=== PATIENT | female | born 1940 | race Caucasian/White ===

== ENCOUNTER 2018-09-10 09:40 | Observation (INO) | payer MEDICARE, OTHER ==
[~2018-09-10] VITALS: Ht 154.9 cm; Wt 74.1 kg
[~2018-09-10 09:40] MED LIST: AMLODIPINE BESY10 MG PO; AREDS; AVASTIN25 MG/1 ML; B12 PO; CALCIUM600 MG PO; CLOPIDOGREL75 MG PO; EDARBI80 MG PO; HYDROCHLOROTH12.5 MG PO; HYDROXYCHLOROQ200 MG PO; LEVETIRACETAM750 M1 PO; MAGNESIUM500 MG PO; METHOTREXATE2.5 MG PO; METOPROLOL SUCC50 MG PO; MONTELUKAST SOD10 MG PO; OMEGA-31000 MG; OXAPROZIN600 MG PO; TRAVATAN Z5 ML OP; TRIAMCINOLONE A15 G1; ZYRTEC10 M3; [UNRECOGNIZED DRUG - OTHER]; [UNRECOGNIZED DRUG - OTHER] PO
--- OUTSIDE RECORDS SUMMARY | 2018-09-10 09:42 | XMS REPORT | Clinical Summary ---
Author Author [facility] Address Unknown Phone Unavailable Care Team Providers Care Business Services Representative Name Role Phone Jose Robin MD PCP Allergies Not on File Medications Not on file Active Problems Not on file Encounters Care Team Description Date Type Specialty Tavares Blank MD S/P total knee arthroplasty, right (Primary Dx) 02/06/2018 Transcribe Physical Therapy Orders after 09/09/2017 Social History Date Tobacco Use Types Packs/Day Years Used Never Assessed Sex Assigned at Date Recorded Not on file Industry Job Start Date Occupation Not on file Not on file Not on file Travel End Travel History Travel Start No recent travel history available. Last Filed Vital Signs Not on file Plan of Treatment Health Maintenance Due Date Last Done Comments SHINGLES VACCINES (#1) 12/15/1989 65+ PNEUMOCOCCAL VACCINE 12/15/2004 09/13/2015 (2 of 2 - PPSV23) INFLUENZA VACCINE 01/10/2018 PNEUMOCOCCAL Completed 09/13/2015 POLYSACCHARIDE VACCINE AGE 65 AND OVER Results Not on fileafter 09/09/2017 Insurance Payer Benefit Subscriber ID Type Phone Address Plan / Group HUMANA MEDICARE HUMANA xxxxxxxxx PPO MEDICARE PPO/PFFS/E [facility] Advance Directives Patient has advance care planning documents on file. For more information, saumya garcia contact: [facility] [address] [place] [address]
--- OUTSIDE RECORDS SUMMARY | 2018-09-10 09:42 | XMS REPORT | Continuity of Care Document ---
Author Author 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 12/30/2015 [facility] [place] INTRAPARENCHYMAL BLEED Active 09/13/2015 [facility] Macular degeneration Active 04/10/2014 Problem 01/09/2016 [facility], [facility] [place] Seizures Active 04/10/2014 Problem 01/09/2016 [facility], [facility] [place] TIA Resolved 04/10/2014 Problem 01/09/2016 [facility], [facility] [place] Arthritis Resolved Problem 01/09/2016 [facility], [facility] [place] Hypertension Resolved Problem 01/09/2016 [facility], [facility] [place] OTHER SPECIFIED CONGENITAL DEFORMITIES Active [facility] Medications Medication Details Route Status Patient Instructions Ordering Provider Order Date Source Labetalol 200 mg, 1 tab, Route: PO, Drug form: TAB, Q8H, Dosing Weight 71.5, kg, Start date: 09/17/15 16:00:00, Duration: 30 day, Stop date: 10/17/15 8:00:00Notes: With food. (Same as:Trandate, Normodyne) No Longer Active 09/17/2015 [facility] amLODIPine 10 mg oral tablet 10 mg=1 tab, PO, Daily, # 30 tab, 0 Refill(s) Active 09/17/2015 [facility] Multivitamins with Folic Acid 1 mg oral tablet 1 mg=1 tab, PO, Daily, # 30 tab, 0 Refill(s) Active 09/17/2015 [facility] Levetiracetam 500 MG Oral Tablet [Keppra] 1,000 mg=2 tab, PO, Q12H, # 120 tab, 0 Refill(s) Active 09/17/2015 [facility] Calcium Carbonate 500 MG Chewable Tablet 1,000 mg=2 tab, PO, Daily, 0 Refill(s) Active 09/17/2015 [facility] labetalol 100 mg oral tablet 200 mg=2 tab, PO, Q8H, # 180 tab, 0 Refill(s) Active 09/17/2015 [facility] losartan 50 mg oral tablet 100 mg=2 tab, PO, Daily, # 60 tab, 0 Refill(s) Active 09/17/2015 [facility] Labetalol 100 mg, 1 tab, Route: PO, Drug form: TAB, Q8H, Dosing Weight 71.5, kg, Priority: NOW, Start date: 09/16/15 16:53:00, Duration: 30 day, Stop date: 10/16/15 16:00:00Notes: With food. (Same as:TrandaValentin myersodyne) No Longer Active 09/16/2015 [facility] Labetalol 100 mg, 1 tab, Route: PO, Drug form: TAB, Q12H, Dosing Weight 71.5, kg, Priority: NOW, Start date: 09/16/15 4:07:00, Stop date: 10/15/15 21:00:00Notes: With food. (Same as:Trandate, Normodyne) Inactive 09/16/2015 [facility] methotrexate 2.5 mg oral tablet 7.5 mg=3 tab, PO, Q7D Active 09/15/2015 [facility] oxaprozin 600 MG Oral Tablet [Daypro] 1,200 mg=2 tab, PO, Daily Active 09/15/2015 [facility] metoprolol 100 mg oral tablet, extended release 100 mg=1 tab, PO, Daily No Longer Active 09/15/2015 [facility] azilsartan medoxomil 80 MG Oral Tablet [Edarbi] 80 mg=1 tab, PO, Daily No Longer Active 09/15/2015 [facility] clopidogrel 75 MG Oral Tablet [Plavix] 75 mg=1 tab, PO, Daily, # 30 tab, 0 Refill(s) No Longer Active 09/15/2015 [facility] Cozaar 25 mg, 1 tab, Route: PO, Drug form: TAB, ONCE, Start date: 09/15/15 14:05:00, Stop date: 09/15/15 14:05:00Notes: (Same as: Cozaar) Inactive 09/15/2015 [facility] Betamethasone 0.5 MG/ML Topical Lotion 1 appl, Route: TOP, Daily, Drug form: LOT, Start date: 09/15/15 11:43:00, Duration: 30 day, Stop date: 10/15/15 9:00:00Notes: (Same as:Valisone) No Longer Active 09/15/2015 [facility] Vitamin B12 2,500 microgram, 5 tab, Route: PO, Drug form: TAB, Daily, Dosing Weight 71.5, kg, Start date: 09/15/15 11:38:00, Duration: 30 day, Stop date: 10/15/15 9:00:00Notes: (Same As: Vitamin B12) No Longer Active 09/15/2015 [facility] Magnesium Oxide 400 mg, 1 tab, Route: PO, Drug form: TAB, Daily, Dosing Weight 71.5, kg, Start date: 09/15/15 11:33:00, Duration: 30 day, Stop date: 10/15/15 9:00:00Notes: (Same as: Mag-Ox 400) Magnesium oxide 400mg =242mg elemental magnesium Dose=____mg magnesium oxide (___mg elemental magnesium) No Longer Active 09/15/2015 [facility] Folic Acid 1 mg, 1 tab, Route: PO, Drug form: TAB, Daily, Dosing Weight 71.5, kg, Start date: 09/15/15 11:32:00, Duration: 30 day, Stop date: 10/15/15 9:00:00Notes: (Same as: Folvite) No Longer Active 09/15/2015 [facility] Zyrtec 10 mg, 1 tab, Route: PO, Drug form: TAB, Daily, Dosing Weight 71.5, kg, PRN as needed for allergy symptoms, Start date: 09/15/15 11:10:00, Duration: 30 day, Stop date: 10/15/15 11:09:00Notes: (Same As: Zyrtec) No Longer Active 09/15/2015 [facility] Multihance 529 mg/mL 7,564.7 mg, 14.3 mL, Route: IVP, Drug form: INJ, ONCALL, Dosing Weight 71.5, kg, GFR > 39 ml/min, Priority: STAT, Start date: 09/14/15 23:00:00, Duration: 1 doses or timesNotes: Same as Multihance No Longer Active 09/15/2015 [facility] Ativan 1 mg, 0.5 mL, Route: IVP, Drug form: INJ, ONCE, Dosing Weight 71.5, kg, PRN Anxiety, Start date: 09/14/15 22:37:00Notes: (Same as: Ativan) Inactive 09/15/2015 [facility] Levetiracetam 500 MG Oral Tablet [Keppra] 1,000 mg, 2 tab, Route: PO, Drug form: TAB, Q12H, Dosing Weight 71.5, kg, Start date: 09/14/15 21:00:00, Duration: 30 day, Stop date: 10/14/15 9:00:00Notes: (Same as:Keppra) No Longer Active 09/15/2015 [facility] cholecalciferol 1,000 IntlUnit, Route: PO, Drug form: TAB, Daily, Dosing Weight 71.5, kg, Start date: 09/14/15 9:00:00, Duration: 30 day, Stop date: 10/13/15 9:00:00 No Longer Active 09/14/2015 [facility] Calcium Carbonate 1,000 mg, 2 tab, Route: PO, Drug form: CHEWTAB, Daily, Dosing Weight 71.5, kg, Start date: 09/14/15 9:00:00, Duration: 30 day, Stop date: 10/13/15 9:00:00Notes: (Same As: Tumalis) Calcium Carbonate 500 ld=729 mg elemental calcium Dose= mg calcium carbonate ( mg elemental calcium) No Longer Active 09/14/2015 [facility] Hydroxychloroquine Sulfate 200 MG Oral Tablet 200 mg, 1 tab, Route: PO, Drug form: TAB, BID, Dosing Weight 71.5, kg, Start date: 09/14/15 9:00:00, Duration: 30 day, Stop date: 10/13/15 17:00:00Notes: (Same as: Plaquenil) Hydroxychloroquine sulfate 200 vb=741 mg hydroxychloroquine base. If treating malaria, verify dose as salt vs. base per CDC guideline No Longer Active 09/14/2015 [facility] heparin 5,000 unit, 1 mL, Route: SUB-Q, Drug form: INJ, Q8H, Dosing Weight 71.5, kg, Priority: Routine, Start date: 09/14/15 8:00:00, Duration: 30 day, Stop date: 10/14/15 0:00:00Notes: porcine heparin No Longer Active 09/14/2015 [facility] Potassium Chloride 10 MEQ Extended Release Tablet 10 mEq, 1 tab, Route: PO, Drug form: ERTAB, ONCE, Dosing Weight 71.5, kg, Start date: 09/14/15 6:53:00, Stop date: 09/14/15 6:53:00Notes: (Same as: K-Dur 10) "Do Not Crush" With food and full glass of water Inactive 09/14/2015 [facility] Singulair 10 mg, 1 tab, Route: PO, Drug form: TAB, Bedtime, Dosing Weight 71.5, kg, Start date: 09/13/15 21:00:00, Duration: 30 day, Stop date: 10/12/15 21:00:00Notes: (Same as:Singulair) No Longer Active 09/14/2015 [facility] metoprolol tartrate 50 mg, 1 tab, Route: PO, Drug form: TAB, Q12H, Dosing Weight 71.5, kg, Start date: 09/13/15 21:00:00, Duration: 30 day, Stop date: 10/13/15 9:00:00Notes: (Same as: Lopressor) No Longer Active 09/14/2015 [facility] travoprost 0.04 MG/ML Ophthalmic Solution 1 drp, Route: LEFT EYE, Bedtime, Drug form: SOLN, Start date: 09/13/15 21:00:00, Duration: 30 day, Stop date: 10/12/15 21:00:00Notes: Same As: Travatan or Travatan Z No Longer Active 09/14/2015 [facility] Tylenol 650 mg, 2 tab, Route: PO, Drug form: TAB, Q6H, Dosing Weight 71.5, kg, PRN Pain 1-3/Temp > 100.4 F, Start date: 09/13/15 18:11:00, Duration: 30 day, Stop date: 10/13/15 18:10:00Notes: Do not exceed 4 gm/day. (Same as: Tylenol) No Longer Active 09/13/2015 [facility] Cozaar 100 mg, 2 tab, Route: PO, Drug form: TAB, Daily, Start date: 09/13/15 13:00:00, Stop date: 10/12/15 13:00:00Notes: (Same as: Cozaar) No Longer Active 09/13/2015 [facility] azilsartan 80 mg, Route: PO, Daily, Dosing Weight 71.5, kg, Priority: NOW, Start date: 09/13/15 12:19:00, Duration: 30 day, Stop date: 10/13/15 9:00:00 Inactive 09/13/2015 [facility] Amlodipine 10 mg, 1 tab, Route: PO, Drug form: TAB, Daily, Dosing Weight 71.5, kg, Priority: NOW, Start date: 09/13/15 12:18:00, Duration: 30 day, Stop date: 10/13/15 9:00:00Notes: (Same as: Norvasc) No Longer Active 09/13/2015 [facility] metoprolol extended release 100 mg, 1 tab, Route: PO, Drug form: ERTAB, Daily, Priority: NOW, Start date: 09/13/15 12:17:00, Duration: 30 day, Stop date: 10/13/15 9:00:00Notes: (Same as: Toprol XL) May split tab, but do not crush. Inactive 09/13/2015 [facility] sennosides, GROUP HOME 17.2 mg, 2 tab, Route: PO, Drug Form: TAB, kg, Daily, Start date: 09/13/15 9:00:00, Duration: 30 day, Stop date: 10/12/15 9:00:00Notes: (Same as: Senokot) No Longer Active 09/13/2015 [facility] Docusate 100 mg, 1 cap, Route: PO, Drug form: CAP, BID, kg, Start date: 09/13/15 9:00:00, Duration: 30 day, Stop date: 10/12/15 17:00:00Notes: (Same as: Colace) (Do Not Crush) No Longer Active 09/13/2015 [facility] Multivitamins with Folic Acid 1 mg oral tablet 1 tab, Route: PO, Drug Form: TAB, Dosing Weight 71.5, kg, Daily, Start date: 09/13/15 9:00:00, Duration: 30 day, Stop date: 10/12/15 9:00:00 No Longer Active 09/13/2015 [facility] Levetiracetam 500 MG Oral Tablet [Keppra] 750 mg, 3 tab, Route: PO, Drug form: TAB, Q12H, Dosing Weight 71.5, kg, Start date: 09/13/15 9:00:00, Duration: 30 day, Stop date: 10/12/15 21:00:00Notes: (Same as:Keppra) No Longer Active 09/13/2015 [facility] Saline Flush 0.9% 10 ml, Route: IVP, Drug Form: INJ, Dosing Weight 71.5, kg, Q12H, Start date: 09/13/15 9:00:00, Duration: 30 day, Stop date: 10/12/15 21:00:00Notes: (Same as: BD Posiflush) No Longer Active 09/13/2015 [facility] pneumococcal capsular polysaccharide type 1 vaccine / pneumococcal capsular polysaccharide type 10A vaccine / pneumococcal capsular polysaccharide type 11A vaccine / pneumococcal capsular polysaccharide type 12F vaccine / pneumococcal capsular polysacchar 0.5 mL, Route: IM, Drug Form: INJ, Daily, Start date: 09/13/15 9:00:00, Duration: 1 doses or times, Stop date: 09/13/15 9:00:00Notes: (Same as: Pneumovax 23) Refrigerate Inactive 09/13/2015 [facility] Saline Flush 0.9% 10 ml, Route: IVP, Drug Form: INJ, Dosing Weight 71.5, kg, PRN, PRN Line Flush, Start date: 09/13/15 5:38:00, Duration: 30 day, Stop date: 10/13/15 5:37:00Notes: Same as: BD Posiflush Sterile No Longer Active 09/13/2015 [facility] Nicardipine 40 mg, 200 mL, Rate: Titrate, Start Dose: 5 mg/hr, Titration: 2.5 mg/hour every 15 minutes, Goal(s): goal SBP 110-150, Max Dose: 15 mg/hr, Route: IV, Dosing Weight 71.5 kg, Total Volume: 200, Start date: 09/13/15 5:38:00, Duration: 30 day, Stop date:...Notes: Same as: Cardene Concentration: (0.2 mg /1 ml ) No Longer Active 09/13/2015 [facility] Labetalol 10 mg, 2 mL, Route: IVP, Drug form: INJ, Q10Min, Dosing Weight 71.5, kg, PRN Hypertension, For SBP > 150mmHg, Start date: 09/13/15 5:38:00, Duration: 3 doses or times, Stop date: Limited # of times No Longer Active 09/13/2015 [facility] Labetalol 10 mg, 2 mL, Route: IV, Drug form: INJ, Q1H, Dosing Weight 71.5, kg, PRN Other -See Comment, Start date: 09/13/15 5:27:00, Duration: 30 day, Stop date: 10/13/15 5:26:00, SBP > 150 No Longer Active 09/13/2015 [facility] Hydralazine 10 mg, 0.5 mL, Route: IVP, Drug form: INJ, Q4H, Dosing Weight 71.5, kg, PRN Hypertension, Start date: 09/13/15 4:21:00, Duration: 30 day, Stop date: 10/13/15 4:20:00Notes: (Same as: Apresoline) Push over 5 minutes No Longer Active 09/13/2015 [facility] potassium chloride 20 mEq, 100 mL, Route: IVPB, Drug form: INJ, ONCE, Dosing Weight 71.5, kg, Start date: 09/13/15 3:58:00, Stop date: 09/13/15 3:58:00, Central LineNotes: (Same as: KCL) Infuse no faster than 10 mEq/hr if given peripherally. Inactive 09/13/2015 [facility] NS 1,000 mL 1,000 mL, Rate: 75 ml/hr, Infuse over: 13.3 hr, Route: IV, Dosing Weight 71.5 kg, Total Volume: 1,000, Start date: 09/13/15 2:33:00, Duration: 30 day, Stop date: 10/13/15 2:32:00 Inactive 09/13/2015 [facility] montelukast 10 MG Oral Tablet [Singulair] 10 mg=1 tab, PO, QPM, 0 Refill(s) Active 09/13/2015 [facility] 120 ACTUAT Triamcinolone Acetonide 0.055 MG/ACTUAT Nasal Inhaler 2 spray, NASAL, Daily, 0 Refill(s) Active 09/13/2015 [facility] clopidogrel 75 mg oral tablet 75 mg=1 tab, PO, Daily, 0 Refill(s) No Longer Active 09/13/2015 [facility] magnesium oxide 500 mg oral tablet 500 mg=1 tab, PO, Daily, 0 Refill(s) Active 09/13/2015 [facility] Calcium Carbonate 1,200 mg, PO, Daily, 0 Refill(s) No Longer Active 09/13/2015 [facility] hydrochlorothiazide 12.5 mg oral tablet 12.5 mg=1 tab, PO, Daily, 0 Refill(s) No Longer Active 09/13/2015 [facility] amLODIPine 10 mg oral tablet 10 mg=1 tab, PO, Daily, 0 Refill(s) No Longer Active 09/13/2015 [facility] omega-3 polyunsaturated fatty acids PO, 0 Refill(s) No Longer Active 09/13/2015 [facility] Vitamin B12 2,500 microgram, SL, Daily, 0 Refill(s) Active 09/13/2015 [facility] azilsartan 80 mg oral tablet 80 mg=1 tab, PO, Daily, 0 Refill(s) No Longer Active 09/13/2015 [facility] Vitamin D3 5000 intl units oral tablet 5,000 IntlUnit=1 tab, PO, Daily, 0 Refill(s) Active 09/13/2015 [facility] Folic Acid 1 MG Oral Tablet 1 mg=1 tab, PO, Daily, 0 Refill(s) Active 09/13/2015 [facility] Avastin 25 mg/mL intravenous solution See Instructions, LEFT EYE - injected in eye once every 6 weeks, 0 Refill(s) Active 09/13/2015 [facility] travoprost 0.04 MG/ML Ophthalmic Solution [Travatan] 1 drp, BOTH EYES, QPM, 0 Refill(s) Active 09/13/2015 [facility] 24 HR Levetiracetam 750 MG Extended Release Tablet [Keppra] 750 mg=1 tab, PO, Daily, 0 Refill(s) No Longer Active 09/13/2015 [facility] Diclofenac Sodium 0.01 MG/MG Topical Gel [Voltaren] TOP, 0 Refill(s) Active 09/13/2015 [facility] oxaprozin 600 mg oral tablet 1,200 mg=2 tab, PO, Daily, 0 Refill(s) No Longer Active 09/13/2015 [facility] methotrexate 2.5 mg oral tablet 2.5 mg=1 tab, PO, qWeek, 0 Refill(s) No Longer Active 09/13/2015 [facility] Hydroxychloroquine Sulfate 200 MG Oral Tablet 200 mg=1 tab, PO, Q12H, 0 Refill(s) Active 09/13/2015 [facility] cetirizine hydrochloride 10 MG Oral Tablet [Zyrtec] 10 mg=1 tab, PO, Daily, PRN as needed for allergy symptoms, 0 Refill(s) Active 09/13/2015 [facility] Allergies, Adverse Reactions, Alerts Substance Category Reaction Severity Reaction type Status Date Reported Comments Source sulfa drugs Assertion rash Drug allergy Active [facility] [place] Immunizations Immunization Date Given Site Status Last Updated Comments Source pneumococcal 23-valent vaccine 09/13/2015 Left Deltoid completed [facility] [place] Results Order Name Results Value Reference Range Date Interpretation Comments Source Brain wo contrast CT Brain wo contrast CT Brain wo contrast CT 10/06/2017 11:02 AM CDT Clinical Indication: Z86.79 Personal history of other diseases of the circulatory system; HISTORY of intracranial hemorrhage - Z86.79 Personal history of other diseases of the circulatory system; HISTORY of intracranial hemorrhage; COMPARISON: 01/06/2016 MRI, 09/14/2015 CT TECHNIQUE: Axial CT images of the brain are obtained from the skull base to the vertex. Axial, sagittal, and coronal images are interpreted. Contrast: No IV contrast. DLP: 1223 mGy-cm. This exam was performed according to our departmental dose- optimization protocol, which includes automated exposure control, adjustment of the mA and/or kV according to patient size and/or use of iterative reconstruction technique. FINDINGS: BRAIN: Left frontal lobe encephalomalacia and gliosis is present due to the prior hemorrhage. No acute intracranial hemorrhage. Significant chronic microvascular ischemia is seen. Mild cerebral atrophy is present. SKULL: No skull abnormality is seen. VENTRICLES: The ventricles are normal in size and configuration. ORBITS, VISUALIZED PARANASAL SINUSES AND MASTOIDS: Visualized paranasal sinuses are clear. The mastoid air cells are clear. No orbital pathology is seen. IMPRESSION: 1. No acute intracranial abnormality identified. 2. Left frontal lobe encephalomalacia and gliosis due to prior hemorrhage. 3. Significant chronic microvascular ischemia. 10/06/2017 - - Read by: Rad Villeda MD Dictated Date/time: 10/06/17 16:26 Electronically Signed by: Rad Villeda MD 10/06/17 16:30 FINAL REPORT [facility] Brain w/wo contrast MRI Brain w/wo contrast MRI EXAM: MRI OF THE BRAIN WITHOUT AND WITH CONTRAST DATE:- 01/06/2016 10:00 AM CDT . 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 ADDITIONAL DATA: History: 75 year old female with c/o stroke and hemorrhage in brain. Per patient she states follow up on checking for absorption of blood in brain. COMPARISON: Brain magnetic resonance imaging of 09/14/2015, brain CT of 09/14/2015 TECHNIQUE : Multiplanar imaging of the brain was obtained both prior to and after uncomplicated IV administration of 15 cc Omniscan FINDINGS: Again noted is a left frontal parietal hematoma with subarachnoid and intraventricular extension. The overall cavity now measures 3.4 cm AP by 9 mm transverse with the hematoma itself measuring 10 mm. There is no mass effect or surrounding vasogenic edema currently. There is moderate generalized cortical and deep white matter volume loss with passive enlargement of the ventricles and sulci. There are advanced chronic microangiopathic white matter changes. There are a few, mostly right hemispheric chronic microhemorrhages. The lateral ventricles, cortical sulci, and basal cisterns are patent. The cerebellar tonsils are above foramen magnum. The sella is normal. The vascular flow-voids are unremarkable. There is no worrisome enhancement. There is minimal, linear enhancement of the hematoma cavity. The paranasal sinuses, orbits and mastoids are unremarkable. IMPRESSION: Resolving left frontal intraparenchymal hematoma without evidence of interval rebleeding or underlying mass lesion. Minimal, linear enhancement of the hematoma cavity is likely reactive 01/06/2016 - - Read by: Jered Baker MD Dictated Date/time: 01/06/16 11:39 Electronically Signed by: Jered Baker MD 01/06/16 13:24 FINAL REPORT [facility] ELECTROLYTES AGAP 16.4 meq/L 10.0 - 20.0 09/17/2015 [facility] ELECTROLYTES eGFR 79 mL/min/1.73m2 09/17/2015 Result Comment: The eGFR is calculated using the CKD-EPI formula. In most young, healthy individuals the eGFR will be >90 mL/min/1.73m2. The eGFR declines with age. An eGFR of 60-89 may be normal in some populations, particularly the elderly, for whom the CKD-EPI formula has not been extensively validated. Use of the eGFR is not recommended in the following populations: Individuals with unstable creatinine concentrations, including patients and those with serious co-morbid conditions. Patients with extremes in muscle mass or diet. The data above are obtained from the National Kidney Disease Education Program (NKDEP) which additionally recommends that when the eGFR is used in patients with extremes of body mass index for purposes of drug dosing, the eGFR should be multiplied by the estimated BMI. [facility] ELECTROLYTES CO2 23 meq/L 24 - 32 09/17/2015 [facility] ELECTROLYTES Glucose Lvl 116 mg/dL 70 - 99 09/17/2015 [facility] ELECTROLYTES BUN 17 mg/dL 7 - 22 09/17/2015 [facility] ELECTROLYTES Calcium Lvl 9.0 mg/dL 8.5 - 10.5 09/17/2015 [facility] ELECTROLYTES Chloride Lvl 95 meq/L 95 - 109 09/17/2015 [facility] ELECTROLYTES Sodium Lvl 131 meq/L 135 - 145 09/17/2015 [facility] ELECTROLYTES Potassium Lvl 3.4 meq/L 3.5 - 5.1 09/17/2015 [facility] ELECTROLYTES Creatinine Lvl 0.74 mg/dL 0.50 - 1.40 09/17/2015 [facility] HEMATOLOGY Segs 76.5 % 45.0 - 75.0 09/17/2015 [facility] HEMATOLOGY Lymphocytes 13.1 % 20.0 - 40.0 09/17/2015 [facility] HEMATOLOGY Basophils 0.3 % 0.0 - 1.0 09/17/2015 [facility] HEMATOLOGY Monocytes 9.6 % 2.0 - 12.0 09/17/2015 [facility] HEMATOLOGY Eosinophils 0.5 % 0.0 - 4.0 09/17/2015 [facility] HEMATOLOGY Segs-Bands # 6.6 K/CMM 1.5 - 8.1 09/17/2015 [facility] HEMATOLOGY Lymphocytes # 1.1 K/CMM 1.0 - 5.5 09/17/2015 [facility] HEMATOLOGY Monocytes # 0.8 K/CMM 0.0 - 0.8 09/17/2015 [facility] HEMATOLOGY Hgb 11.0 g/dL 12.0 - 16.0 09/17/2015 [facility] HEMATOLOGY Hct 31.7 % 36.0 - 48.0 09/17/2015 [facility] HEMATOLOGY MCV 91.3 fL 80.0 - 98.0 09/17/2015 [facility] HEMATOLOGY MCHC 34.8 g/dL 32.0 - 36.0 09/17/2015 [facility] HEMATOLOGY MCH 31.8 pg 27.0 - 31.0 09/17/2015 [facility] HEMATOLOGY RDW 15.7 % 11.5 - 14.5 09/17/2015 [facility] HEMATOLOGY MPV 6.4 fL 7.4 - 10.4 09/17/2015 [facility] HEMATOLOGY Platelet 311 K/CMM 133 - 450 09/17/2015 [facility] HEMATOLOGY RBC 3.47 M/CMM 4.20 - 5.40 09/17/2015 [facility] HEMATOLOGY WBC 8.7 K/CMM 3.7 - 10.4 09/17/2015 [facility] CHEM PANEL Phosphorus 3.4 mg/dL 2.5 - 4.5 09/16/2015 [facility] CHEM PANEL Magnesium Lvl 2.4 mg/dL 1.8 - 2.4 09/16/2015 [facility] ELECTROLYTES AGAP 14.5 meq/L 10.0 - 20.0 09/16/2015 [facility] ELECTROLYTES eGFR 88 mL/min/1.73m2 09/16/2015 Result Comment: The eGFR is calculated using the CKD-EPI formula. In most young, healthy individuals the eGFR will be >90 mL/min/1.73m2. The eGFR declines with age. An eGFR of 60-89 may be normal in some populations, particularly the elderly, for whom the CKD-EPI formula has not been extensively validated. Use of the eGFR is not recommended in the following populations: Individuals with unstable creatinine concentrations, including patients and those with serious co-morbid conditions. Patients with extremes in muscle mass or diet. The data above are obtained from the National Kidney Disease Education Program (NKDEP) which additionally recommends that when the eGFR is used in patients with extremes of body mass index for purposes of drug dosing, the eGFR should be multiplied by the estimated BMI. [facility] ELECTROLYTES Calcium Lvl 9.4 mg/dL 8.5 - 10.5 09/16/2015 [facility] ELECTROLYTES CO2 23 meq/L 24 - 32 09/16/2015 [facility] ELECTROLYTES Chloride Lvl 100 meq/L 95 - 109 09/16/2015 [facility] ELECTROLYTES Glucose Lvl 113 mg/dL 70 - 99 09/16/2015 [facility] ELECTROLYTES BUN 15 mg/dL 7 - 22 09/16/2015 [facility] ELECTROLYTES Creatinine Lvl 0.63 mg/dL 0.50 - 1.40 09/16/2015 [facility] ELECTROLYTES Sodium Lvl 134 meq/L 135 - 145 09/16/2015 [facility] ELECTROLYTES Potassium Lvl 3.5 meq/L 3.5 - 5.1 09/16/2015 [facility] HEMATOLOGY Monocytes # 0.6 K/CMM 0.0 - 0.8 09/16/2015 [facility] HEMATOLOGY Basophils # 0.1 K/CMM 0.0 - 0.2 09/16/2015 [facility] HEMATOLOGY Eosinophils # 0.1 K/CMM 0.0 - 0.5 09/16/2015 [facility] HEMATOLOGY Basophils 0.7 % 0.0 - 1.0 09/16/2015 [facility] HEMATOLOGY Lymphocytes # 1.1 K/CMM 1.0 - 5.5 09/16/2015 [facility] HEMATOLOGY Segs-Bands # 6.6 K/CMM 1.5 - 8.1 09/16/2015 [facility] HEMATOLOGY Eosinophils 1.1 % 0.0 - 4.0 09/16/2015 [facility] HEMATOLOGY Monocytes 7.1 % 2.0 - 12.0 09/16/2015 [facility] HEMATOLOGY Lymphocytes 13.2 % 20.0 - 40.0 09/16/2015 [facility] HEMATOLOGY Segs 77.9 % 45.0 - 75.0 09/16/2015 [facility] HEMATOLOGY Hgb 12.1 g/dL 12.0 - 16.0 09/16/2015 [facility] HEMATOLOGY MCHC 35.0 g/dL 32.0 - 36.0 09/16/2015 [facility] HEMATOLOGY MCH 31.8 pg 27.0 - 31.0 09/16/2015 [facility] HEMATOLOGY MCV 91.0 fL 80.0 - 98.0 09/16/2015 [facility] HEMATOLOGY Hct 34.5 % 36.0 - 48.0 09/16/2015 [facility] HEMATOLOGY RDW 15.4 % 11.5 - 14.5 09/16/2015 [facility] HEMATOLOGY MPV 6.3 fL 7.4 - 10.4 09/16/2015 [facility] HEMATOLOGY Platelet 340 K/CMM 133 - 450 09/16/2015 [facility] HEMATOLOGY RBC 3.79 M/CMM 4.20 - 5.40 09/16/2015 [facility] HEMATOLOGY WBC 8.5 K/CMM 3.7 - 10.4 09/16/2015 [facility] PARATHYROID PROFILE Ca Norm WB 1.22 mMol/L 1.05 - 1.25 09/16/2015 [facility] PARATHYROID PROFILE Ca Ion WB 1.18 mMol/L 1.05 - 1.25 09/16/2015 [facility] CHEM PANEL Phosphorus 2.3 mg/dL 2.5 - 4.5 09/15/2015 [facility] CHEM PANEL Magnesium Lvl 2.3 mg/dL 1.8 - 2.4 09/15/2015 [facility] CHEM PANEL eGFR 89 mL/min/1.73m2 09/15/2015 Result Comment: The eGFR is calculated using the CKD-EPI formula. In most young, healthy individuals the eGFR will be >90 mL/min/1.73m2. The eGFR declines with age. An eGFR of 60-89 may be normal in some populations, particularly the elderly, for whom the CKD-EPI formula has not been extensively validated. Use of the eGFR is not recommended in the following populations: Individuals with unstable creatinine concentrations, including patients and those with serious co-morbid conditions. Patients with extremes in muscle mass or diet. The data above are obtained from the National Kidney Disease Education Program (NKDEP) which additionally recommends that when the eGFR is used in patients with extremes of body mass index for purposes of drug dosing, the eGFR should be multiplied by the estimated BMI. [facility] CHEM PANEL CO2 24 meq/L 24 - 32 09/15/2015 [facility] CHEM PANEL Calcium Lvl 8.7 mg/dL 8.5 - 10.5 09/15/2015 [facility] CHEM PANEL Glucose Lvl 95 mg/dL 70 - 99 09/15/2015 [facility] CHEM PANEL BUN 14 mg/dL 7 - 22 09/15/2015 [facility] CHEM PANEL Creatinine Lvl 0.62 mg/dL 0.50 - 1.40 09/15/2015 [facility] CHEM PANEL Potassium Lvl 3.5 meq/L 3.5 - 5.1 09/15/2015 [facility] CHEM PANEL Chloride Lvl 99 meq/L 95 - 109 09/15/2015 [facility] CHEM PANEL Sodium Lvl 133 meq/L 135 - 145 09/15/2015 [facility] CHEM PANEL AGAP 13.5 meq/L 10.0 - 20.0 09/15/2015 [facility] HEMATOLOGY Eosinophils # 0.1 K/CMM 0.0 - 0.5 09/15/2015 [facility] HEMATOLOGY Monocytes # 0.7 K/CMM 0.0 - 0.8 09/15/2015 [facility] HEMATOLOGY Basophils 0.5 % 0.0 - 1.0 09/15/2015 [facility] HEMATOLOGY Segs-Bands # 6.1 K/CMM 1.5 - 8.1 09/15/2015 [facility] HEMATOLOGY Lymphocytes # 1.4 K/CMM 1.0 - 5.5 09/15/2015 [facility] HEMATOLOGY Monocytes 7.8 % 2.0 - 12.0 09/15/2015 [facility] HEMATOLOGY Eosinophils 1.2 % 0.0 - 4.0 09/15/2015 [facility] HEMATOLOGY Segs 73.4 % 45.0 - 75.0 09/15/2015 [facility] HEMATOLOGY Lymphocytes 17.1 % 20.0 - 40.0 09/15/2015 [facility] HEMATOLOGY PTT 27.3 s 22.9 - 35.8 09/15/2015 [facility] HEMATOLOGY PT 13.7 s 12.0 - 14.7 09/15/2015 [facility] HEMATOLOGY INR 1.02 0.85 - 1.17 09/15/2015 [facility] HEMATOLOGY MPV 6.5 fL 7.4 - 10.4 09/15/2015 [facility] HEMATOLOGY Hct 34.1 % 36.0 - 48.0 09/15/2015 [facility] HEMATOLOGY MCHC 34.1 g/dL 32.0 - 36.0 09/15/2015 [facility] HEMATOLOGY RDW 15.9 % 11.5 - 14.5 09/15/2015 [facility] HEMATOLOGY Platelet 326 K/CMM 133 - 450 09/15/2015 [facility] HEMATOLOGY MCV 91.8 fL 80.0 - 98.0 09/15/2015 [facility] HEMATOLOGY MCH 31.3 pg 27.0 - 31.0 09/15/2015 [facility] HEMATOLOGY WBC 8.3 K/CMM 3.7 - 10.4 09/15/2015 [facility] HEMATOLOGY RBC 3.71 M/CMM 4.20 - 5.40 09/15/2015 [facility] HEMATOLOGY Hgb 11.6 g/dL 12.0 - 16.0 09/15/2015 [facility] Brain w/wo contrast MRI Brain w/wo contrast MRI EXAM: MRI BRAIN WITH AND WITHOUT CONTRAST DATE: 09/15/2015 INDICATION: Weakness COMPARISON: CT head dated 09/14/2015 TECHNIQUE: Multiplanar, multisequence non-contrast MRI images of the brain. Multiplanar imaging is subsequently obtained following intravenous gadolinium contrast. IV contrast: 14 mL of MultiHance FINDINGS: There is a left frontal intraparenchymal hematoma with intraventricular extension with blood products layering in the bilateral occipital horns. There is surrounding vasogenic edema. The hematoma is approximately 5.2 x 2.6 cm similar to the prior examination. There is mass effect on the adjacent brain parenchyma and left right midline shift of approximately 0.6 cm. There are punctate foci of susceptibility within both cerebral hemispheres including the right basal ganglia likely representing small microhemorrhages. There is increased T2 signal within the periventricular white matter concerning for transient minimal flow of CSF. The ventricles are mildly prominent. There are scattered hyperintense T2 lesions within the supratentorial white matter consistent with chronic microvascular ischemic changes. No restricted diffusion to suggest acute ischemia. No abnormal enhancement to suggest an underlying brain mass. The visible paranasal sinuses and skull base are unremarkable. The venous structures are normal with no venous thrombosis identified. IMPRESSION: 1. Left frontal intraparenchymal hematoma, likely hypertensive in etiology with intraventricular extension with blood products layering in the bilateral occipital horns. 2. Development of transependymal flow of CSF concerning for developing hydrocephalus. 3. No underlying brain mass is identified. 4. No venous thrombosis. 09/14/2015 - - This report was dictated by a Operators [employer] Manager/Fellow. I have personally reviewed the images as well as the Resident's interpretation and agree with the findings. Read by: Megha Mcgregor MD Resident: Megha Mcgregor MD Dictated Date/time: 09/15/15 11:33 Electronically Signed by: Lois Churchill 09/16/15 11:07 FINAL REPORT [facility] Brain wo contrast CT Brain wo contrast CT EXAM: CT BRAIN WITHOUT CONTRAST DATE: 09/14/2015 3:02 PM CDT INDICATION: Confusion COMPARISON: CT brain 09/14/[address] brain 09/13/2015 TECHNIQUE: Routine axial CT images of the brain were obtained IV contrast: None. DLP: 1171.07 mGy-cm FINDINGS: The left frontal parenchymal hematoma with surrounding edema and mass effect on the left frontal horn continues to be seen. A trace amount of blood is seen in the occipital horns of the bilateral lateral ventricles, unchanged from the previous study. Underlying chronic microvascular ischemic changes remain unchanged compared to previous studies. The basal cisterns are patent. The paranasal sinuses, orbits and mastoids are unremarkable. IMPRESSION: 1. Stable exam without interval adverse change. 2. Stable appearance of left frontal parenchymal hematoma with intraventricular extension. 09/14/2015 - - This report was dictated by a [employer] Manager/Fellow. I have personally reviewed the images as well as the Resident's interpretation and agree with the findings. Read by: Rafael Gonzáles MD Resident: Rafael Gonzáles MD Dictated Date/time: 09/14/15 16:10 Electronically Signed by: Gage Schultz MD 09/14/15 19:11 FINAL REPORT [facility] Brain Stroke wo contrast CT Brain Stroke wo contrast CT EXAM: CT BRAIN WITHOUT CONTRAST DATE: 09/14/2015 4:00 AM CDT INDICATION: Weakness COMPARISON: Brain CT dated 09/13/2015 TECHNIQUE: Routine axial CT images of the brain were obtained . DLP: 1174 mGy-cm FINDINGS: Left frontal parenchymal hematoma with surrounding edema continues to be seen, with mass effect on the left frontal horn. Underlying chronic microvascular ischemic changes remain unchanged as compared to prior studies. The basal cisterns are patent. IMPRESSION: Evolutionary changes of the left frontal hematoma. 09/14/2015 - - Read by: Lois Churchill Dictated Date/time: 09/14/15 08:27 Electronically Signed by: Lois Churchill 09/14/15 08:34 FINAL REPORT [facility] CARDIAC ENZYMES CK MB Index 1.3 0.0 - 2.5 09/13/2015 [facility] CARDIAC ENZYMES CK MB 1.4 ng/mL 0.5 - 3.6 09/13/2015 [facility] CARDIAC ENZYMES Troponin-T null 0.000 - 0.100 09/13/2015 [facility] CARDIAC ENZYMES Troponin-I null 0.00 - 0.40 09/13/2015 [facility] CARDIAC ENZYMES Total CK 108 unit/L 12 - 191 09/13/2015 [facility] BACTERIAL - SEROLOGY MRSA by PCR Negative (09/13/15 12:36 PM) 09/13/2015 [facility] CARDIAC ENZYMES CK MB Index null 0.0 - 2.5 09/13/2015 [facility] CARDIAC ENZYMES CK MB null 0.5 - 3.6 09/13/2015 [facility] CARDIAC ENZYMES Troponin-T null 0.000 - 0.100 09/13/2015 [facility] CARDIAC ENZYMES Total CK 105 unit/L 12 - 191 09/13/2015 [facility] CARDIAC ENZYMES Troponin-I null 0.00 - 0.40 09/13/2015 [facility] URINE AND STOOL UA Ketones Negative mg/dL Negative mg/dL 09/13/2015 [facility] URINE AND STOOL UA Bili Negative *NA* (09/13/15 8:29 AM) Negative 09/13/2015 [facility] URINE AND STOOL UA Blood Negative (09/13/15 8:29 AM) Negative 09/13/2015 [facility] URINE AND STOOL UA Nitrite Negative (09/13/15 8:29 AM) Negative 09/13/2015 [facility] URINE AND STOOL UA Leuk Est Negative (09/13/15 8:29 AM) Negative 09/13/2015 [facility] URINE AND STOOL UA WBC 2 /HPF 0 - 5 09/13/2015 [facility] URINE AND STOOL UA RBC 2 /HPF 0 - 2 09/13/2015 [facility] URINE AND STOOL UA Urobilinogen <=1.0 mg/dL 0.1 - 1.0 09/13/2015 [facility] URINE AND STOOL UA Sq Epi None Seen 09/13/2015 [facility] URINE AND STOOL UA Protein 10 mg/dL Negative mg/dL 09/13/2015 [facility] URINE AND STOOL UA pH 7.5 5.0 - 8.0 09/13/2015 [facility] URINE AND STOOL UA Spec Grav 1.041 <=1.030 09/13/2015 [facility] URINE AND STOOL UA Turbidity Clear (09/13/15 8:29 AM) Clear 09/13/2015 [facility] URINE AND STOOL UA Glucose Negative mg/dL Negative mg/dL 09/13/2015 [facility] URINE AND STOOL UA Color Yellow *NA* (09/13/15 8:29 AM) Yellow 09/13/2015 [facility] CHEM PANEL Globulin 3.5 g/dL 2.0 - 4.0 09/13/2015 [facility] CHEM PANEL Bili Indirect 0.6 mg/dL 0.0 - 1.0 09/13/2015 [facility] CHEM PANEL A/G Ratio 1.1 0.7 - 1.6 09/13/2015 [facility] CHEM PANEL Bili Direct 0.1 mg/dL 0.0 - 0.3 09/13/2015 [facility] CHEM PANEL Bili Total 0.7 mg/dL 0.2 - 1.3 09/13/2015 [facility] CHEM PANEL Total Protein 7.3 g/dL 6.4 - 8.4 09/13/2015 [facility] CHEM PANEL Alk Phos 73 unit/L 39 - 136 09/13/2015 [facility] CHEM PANEL AST 20 unit/L 0 - 37 09/13/2015 [facility] CHEM PANEL ALT 22 unit/L 0 - 65 09/13/2015 [facility] CHEM PANEL Albumin Lvl 3.8 g/dL 3.5 - 5.0 09/13/2015 [facility] HEMATOLOGY PTT 25.5 s 22.9 - 35.8 09/13/2015 [facility] HEMATOLOGY PT 13.3 s 12.0 - 14.7 09/13/2015 [facility] HEMATOLOGY INR 0.98 0.85 - 1.17 09/13/2015 [facility] LIPIDS CHD Risk 2.75 3.90 - 5.80 09/13/2015 [facility] LIPIDS VLDL 19 09/13/2015 [facility] LIPIDS HDL 63 mg/dL >=61 mg/dL 09/13/2015 [facility] LIPIDS Trig 93 mg/dL <=149 mg/dL 09/13/2015 [facility] LIPIDS Chol 173 mg/dL <=199 mg/dL 09/13/2015 [facility] LIPIDS LDL (Calculated) 91 mg/dL <=99 mg/dL 09/13/2015 [facility] SPECIAL CHEMISTRY Hgb A1C 5.0 % <=5.6 % 09/13/2015 [facility] BLOOD BANK RESULTS Antibody Scrn Negative (09/13/15 2:28 AM) 09/13/2015 [facility] BLOOD BANK RESULTS ABO/Rh O POS 09/13/2015 [facility] CARDIAC ENZYMES Troponin-I null 0.00 - 0.40 09/13/2015 [facility] CHEM PANEL B/C Ratio 19 6 - 25 09/13/2015 [facility] CHEM PANEL Albumin Lvl 4.0 g/dL 3.5 - 5.0 09/13/2015 [facility] CHEM PANEL AST 26 unit/L 0 - 37 09/13/2015 [facility] CHEM PANEL Alk Phos 72 unit/L 39 - 136 09/13/2015 [facility] CHEM PANEL ALT 26 unit/L 0 - 65 09/13/2015 [facility] CHEM PANEL Globulin 3.5 g/dL 2.0 - 4.0 09/13/2015 [facility] CHEM PANEL Bili Total 0.8 mg/dL 0.2 - 1.3 09/13/2015 [facility] CHEM PANEL A/G Ratio 1.1 0.7 - 1.6 09/13/2015 [facility] CHEM PANEL Total Protein 7.5 g/dL 6.4 - 8.4 09/13/2015 [facility] CHEM PANEL Phosphorus 3.5 mg/dL 2.5 - 4.5 09/13/2015 [facility] CHEM PANEL Magnesium Lvl 2.5 mg/dL 1.8 - 2.4 09/13/2015 [facility] HEMATOLOGY TEG Interp Thrombelastograph results show shortened value of R and increased values of both Angle Alpha and MA. These findings are suggestive of platelet and enzymatic hypercoagulation which may be seen in early phase of DIC. Monitor for DIC with DIC panel may be indicated.[id number] 09/13/2015 [facility] HEMATOLOGY R-time 3.1 min 5.0 - 10.0 09/13/2015 [facility] HEMATOLOGY K-time 0.9 min 1.0 - 3.0 09/13/2015 [facility] HEMATOLOGY G-value 12.5 K d/sc 4.5 - 11.0 09/13/2015 [facility] HEMATOLOGY Ly30 0.9 % 0.0 - 7.5 09/13/2015 [facility] HEMATOLOGY Angle 75.0 degrees 53.0 - 72.0 09/13/2015 [facility] HEMATOLOGY Max Amp 71.4 mm 50.0 - 70.0 09/13/2015 [facility] HEMATOLOGY Coag Index 4.3 -3.0-3.0 - 3.0 09/13/2015 [facility] HEMATOLOGY TEG Data See Note (09/13/15 2:28 AM) 09/13/2015 [facility] PARATHYROID PROFILE Ca Norm WB 1.09 mMol/L 1.05 - 1.25 09/13/2015 [facility] PARATHYROID PROFILE Ca Ion WB 1.09 mMol/L 1.05 - 1.25 09/13/2015 [facility] Chest 1view DX Chest 1view DX EXAM: XR CHEST 1 VIEW DATE: 09/13/2015 2:31 AM CDT INDICATION: Abnormal chest sounds. FINDINGS: A single AP semierect view of the chest is submitted, without a prior study for comparison. The heart is slightly prominent. The aorta is ectatic with calcification. The lungs are low in volume. There is mild left lower lobe platelike atelectasis. The costophrenic sulci are sharp, without effusions. The bones are slightly demineralized. There are metallic ringlike densities over the left breast, presumably external to the patient please correlate. IMPRESSION: 1. Slight prominence of the heart which could be accentuated by the low lung volumes. 2. Mild left lower lobe platelike atelectasis. 09/13/2015 - - Read by: Kasie Gagnon MD Dictated Date/time: 09/13/15 07:36 Electronically Signed by: Kasie Gagnon MD 09/13/15 07:37 FINAL REPORT [facility] Brain wo contrast CT Brain wo contrast CT EXAM: CT BRAIN WITHOUT CONTRAST DATE: 09/13/2015 1:45 AM CDT INDICATION: Bleeding COMPARISON:None available TECHNIQUE: Routine axial CT images of the brain were obtainedwith reformatted images in the sagittal and coronal plane. DLP: 1004 mGy-cm FINDINGS: A left frontal parenchymal hematoma measuring 5.3 x 2.9 x 4.7 cm AP x Lat x CC is identified, with surrounding vasogenic edema. It causes is effacement of the left frontal horn, which is posteriorly displaced, and 8 mm rightward shift of the septum pellucidum. Underlying small vessel ischemic changes and volume loss are demonstrated. There are atherosclerotic changes at the carotid siphons. IMPRESSION: A large parenchymal hematoma in the left frontal lobe. Underlying chronic small vessel ischemic changes and volume loss. 09/13/2015 - - Read by: Lois Churchill Dictated Date/time: 09/13/15 08:55 Electronically Signed by: Lois Churchill 09/13/15 08:59 FINAL REPORT [facility] Brain/Neck CTA Brain/Neck CTA EXAM: CTA BRAIN EXAM: CTA NECK DATE: 09/13/2015 2:48 AM CDT INDICATION: Altered level of consciousness COMPARISON: CT of the head from 09/13/2015 TECHNIQUE: Rapid acquisition spiral CT images of the brain and neck were obtained between the aortic arch and the cranial vertex during intravenous infusion of iodinated contrast for the purposes of CT angiography. 3-D CT angiographic images are created using MIP technique at the acquisition workstation. The source images are also presented for interpretation. IV contrast: DLP: mGy-cm FINDINGS: NECK CTA: Aortic arch: The great vessels originate from the aortic arch in the standard configuration. No origin stenosis is identified. The vertebral artery origins are patent bilaterally. Carotid arteries: The cervical common carotid arteries and cervical internal carotid arteries have a normal course, caliber, and contour. There are areas of calcification at the carotid bifurcations. No hemodynamically significant stenosis of the carotid bifurcations or internal carotid arteries is present by NASCET criteria. There is no evidence of vascular injury. Vertebral arteries: The vertebral arteries have a normal course, caliber and contour. The soft tissues of the neck and other incidental structures are normal. BRAIN CTA: Again identified, large left parenchymal hematoma is seen in the left frontal lobe. No evidence of active extravasation of contrast inside of the hematoma. Slight positive vessels at the cephalohematoma without evidence of vascular disruption or occlusions. The anterior and posterior circulations have a normal appearance and a standard branching pattern. No branch occlusion, vascular injury, arteritis, vascular malformation or aneurysm is identified. The deep cerebral veins and major venous sinuses are normal. The brain parenchyma and other incidental structures are unremarkable. IMPRESSION: Normal CTA of the neck and brain. (All qualitative and quantitative assessments of carotid bifurcation and proximal internal carotid artery stenosis are made referencing the distal internal carotid artery {NASCET criteria}.) 09/13/2015 - - Read by: Christiano Wilson Dictated Date/time: 09/13/15 09:30 Electronically Signed by: Christiano Wilson 09/13/15 09:34 FINAL REPORT [facility] Vital Signs Vital Sign Value Date Comments Source Respitory Rate 21 09/18/2015 [facility] Systolic (mm Hg) 132 09/18/2015 [facility] Diastolic (mm Hg) 62 09/18/2015 [facility] Temperature Oral (F) 97.7 F 09/18/2015 [facility] Respitory Rate 31 09/18/2015 [facility] Systolic (mm Hg) 147 09/18/2015 [facility] Diastolic (mm Hg) 63 09/18/2015 [facility] Respitory Rate 20 09/17/2015 [facility] Systolic (mm Hg) 165 09/17/2015 [facility] Diastolic (mm Hg) 69 09/17/2015 [facility] Temperature Oral (F) 97.4 F 09/17/2015 [facility] Temperature Oral (F) 98.0 F 09/17/2015 [facility] Weight 71.5 09/13/2015 [facility] BMI Calculated 29.78 09/13/2015 [facility] Height 154.94 cm 09/13/2015 [facility] Encounters Location Location Details Encounter Type Encounter Number Reason For Visit Attending Provider ADM Date DC Date Status Source [facility] Inpatient [id number] Cele Pozo 09/13/2015 09/18/2015 [facility] [id number] Sue Waterman 01/06/2016 01/07/2016 [facility] Procedures Procedure Code Date Perfomer Comments Source MRI [id number] 04/10/2014 [facility] MRI - Magnetic resonance imaging<sup>1</sup> [id number] 04/10/2014 w/ contrast for TIAs [facility] MRI [id number] 04/10/2014 [facility] MRI - Magnetic resonance imaging<sup>1</sup> [id number] 04/10/2014 w/ contrast for TIAs [facility]
--- OUTSIDE RECORDS SUMMARY | 2018-09-10 09:43 | XMS REPORT | Summary of Care ---
Author Author [facility] [place] Organization [facility] [place] Address Unknown Phone Unavailable Encounter HQ Mirza_junior(FIN) [id number] Date(s): 01/06/16 - 01/06/16 [facility] [place] [address] [place], [place] [address] [phone] Discharge Disposition: Home or Self Care Attending Physician: Sue Waterman MD Vital Signs No data available for this section Problem List Condition Effective Dates Status Health Status Informant Arthritis(Confirmed) Resolved Hypertension(Confirm Resolved ed) 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(Confirmed) 04/10/14 Active TIA(Confirmed) 04/10/14 Resolved Allergies, Adverse Reactions, Alerts Substance Reaction Severity Status sulfa drugs rash Active Medications No data available for this section Results No data available for this section Immunizations Given and Recorded Vaccine Date Status Refusal Reason pneumococcal 23-valent vaccine 09/13/15 Given Procedures Procedure Date Related Diagnosis Body Site MRI 04/10/14 MRI - Magnetic resonance imaging1 04/10/14 1w/ contrast for TIAs Social History Social History Type Response Smoking Status Never smoker; Exposure to Tobacco Smoke None; Cigarette Smoking Last 365 Days No; Reg Smoking Cessation Counseling No Assessment and Plan No data available for this section
--- OUTSIDE RECORDS SUMMARY | 2018-09-10 09:43 | XMS REPORT | Summary of Care ---
Author Author [facility] Organization [facility] Address Unknown Phone Unavailable Encounter LASHON Oconnor(MEGHAN) [id number] Date(s): 09/13/15 - 09/17/15 [facility] [address] [facility] provided by [facility] [place] [address]- Discharge Disposition: Home Attending Physician: Kaitlin Ryan MD Admitting Physician: Cele Pozo MD Referring Physician: Teodoro Garza MD Vital Signs 1 2 3 Most recent to oldest [Reference Range]: 154.94 cm (09/13/15 2:17 AM) Height 97.7 DegF (09/17/15 7:36 PM) 97.4 DegF (09/17/15 4:00 PM) 98.0 DegF (09/17/15 11:55 AM) Temperature Oral [96.4-99.1 DegF] 132/62 mmHg (09/17/15 8:00 PM) 147/63 mmHg *HI* (09/17/15 7:00 PM) 165/69 mmHg *HI* (09/17/15 6:00 PM) Blood Pressure [90-140/60-90 mmHg] 21 BRMIN *HI* (09/17/15 8:00 PM) 31 BRMIN *HI* (09/17/15 7:00 PM) 20 BRMIN (09/17/15 6:00 PM) Respiratory Rate [14-20 BRMIN] 71.5 kg (09/13/15 2:17 AM) Weight 29.78 m2 (09/13/15 2:17 AM) Body Mass Index Problem List Condition Effective Dates Status Health Status Informant Arthritis(Confirmed) Resolved Hypertension(Confirm Resolved ed) 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(Confirmed) 04/10/14 Active TIA(Confirmed) 04/10/14 Resolved Allergies, Adverse Reactions, Alerts Substance Reaction Severity Status sulfa drugs rash Active Medications amLODIPine 10 mg, 1 tab, Route: PO, Drug form: TAB, Daily, Dosing Weight 71.5, kg, Priority : NOW, Start date: 09/13/15 12:18:00, Duration: 30 day, Stop date: 10/13/15 9:00 :00 Notes: (Same as: Norvasc) Start Date: 09/13/15 Stop Date: 09/18/15 Status: Discontinued amLODIPine 10 mg oral tablet 10 mg=1 tab, PO, Daily, # 30 tab, 0 Refill(s) Start Date: 09/17/15 Stop Date: 10/17/15 Status: Ordered amLODIPine 10 mg oral tablet 10 mg=1 tab, PO, Daily, 0 Refill(s) Start Date: 09/13/15 Stop Date: 09/17/15 Status: Discontinued Ativan 1 mg, 0.5 mL, Route: IVP, Drug form: INJ, ONCE, Dosing Weight 71.5, kg, PRN Anxi ety, Start date: 09/14/15 22:37:00 Notes: (Same as: Ativan) Start Date: 09/14/15 Stop Date: 09/14/15 Status: Completed Avastin 25 mg/mL intravenous solution See Instructions, LEFT EYE - injected in eye once every 6 weeks, 0 Refill(s) Start Date: 09/13/15 Status: Ordered azilsartan 80 mg, Route: PO, Daily, Dosing Weight 71.5, kg, Priority: NOW, Start date: 08/25 12:19:00, Duration: 30 day, Stop date: 10/13/15 9:00:00 Start Date: 09/13/15 Stop Date: 09/13/15 Status: Discontinued azilsartan 80 mg oral tablet 80 mg=1 tab, PO, Daily, 0 Refill(s) Start Date: 09/13/15 Stop Date: 09/15/15 Status: Discontinued betamethasone valerate topical 0.1% lotion 1 appl, Route: TOP, Daily, Drug form: LOT, Start date: 09/15/15 11:43:00, Durati on: 30 day, Stop date: 10/15/15 9:00:00 Notes: (Same as:Valisone) Start Date: 09/15/15 Stop Date: 09/18/15 Status: Discontinued calcium carbonate 1,000 mg, 2 tab, Route: PO, Drug form: CHEWTAB, Daily, Dosing Weight 71.5, kg, S tart date: 09/14/15 9:00:00, Duration: 30 day, Stop date: 10/13/15 9:00:00 Notes: (Same As: Paola)Calcium Carbonate 500 [id number] mg elemental calcium Dose=_ mg calcium carbonate ( mg elemental calcium) Start Date: 09/14/15 Stop Date: 09/18/15 Status: Discontinued calcium carbonate 1,200 mg, PO, Daily, 0 Refill(s) Start Date: 09/13/15 Stop Date: 09/17/15 Status: Discontinued calcium carbonate 500 mg (200 mg elemental calcium) oral tablet 1,000 mg=2 tab, PO, Daily, 0 Refill(s) Start Date: 09/17/15 Status: Ordered cholecalciferol 1,000 IntlUnit, Route: PO, Drug form: TAB, Daily, Dosing Weight 71.5, kg, Start date: 09/14/15 9:00:00, Duration: 30 day, Stop date: 10/13/15 9:00:00 Start Date: 09/14/15 Stop Date: 09/13/15 Status: Canceled cholecalciferol 5,000 IntlUnit, 5 tab, Route: PO, Drug form: TAB, Daily, Dosing Weight 71.5, kg, Start date: 09/14/15 9:00:00, Duration: 30 day, Stop date: 10/13/15 9:00:00 Notes: Same as : Vitamin D3 Start Date: 09/14/15 Stop Date: 09/18/15 Status: Discontinued clopidogrel 75 mg oral tablet 75 mg=1 tab, PO, Daily, 0 Refill(s) Start Date: 09/13/15 Stop Date: 09/15/15 Status: Discontinued Cozaar 100 mg, 2 tab, Route: PO, Drug form: TAB, Daily, Start date: 09/13/15 13:00:00, Stop date: 10/12/15 13:00:00 Notes: (Same as: Cozaar) Start Date: 09/13/15 Stop Date: 09/18/15 Status: Discontinued Cozaar 25 mg, 1 tab, Route: PO, Drug form: TAB, ONCE, Start date: 09/15/15 14:05:00, St op date: 09/15/15 14:05:00 Notes: (Same as: Cozaar) Start Date: 09/15/15 Stop Date: 09/15/15 Status: Completed Daypro 600 mg oral tablet 1,200 mg=2 tab, PO, Daily Start Date: 09/15/15 Status: Ordered docusate 100 mg, 1 cap, Route: PO, Drug form: CAP, BID, kg, Start date: 09/13/15 9:00:00, Duration: 30 day, Stop date: 10/12/15 17:00:00 Notes: (Same as: Colace) (Do Not Crush) Start Date: 09/13/15 Stop Date: 09/18/15 Status: Discontinued Edarbi 80 mg oral tablet 80 mg=1 tab, PO, Daily Start Date: 09/15/15 Stop Date: 09/17/15 Status: Discontinued folic acid 1 mg, 1 tab, Route: PO, Drug form: TAB, Daily, Dosing Weight 71.5, kg, Start ric e: 09/15/15 11:32:00, Duration: 30 day, Stop date: 10/15/15 9:00:00 Notes: (Same as: Folvite) Start Date: 09/15/15 Stop Date: 09/18/15 Status: Discontinued folic acid 1 mg oral tablet 1 mg=1 tab, PO, Daily, 0 Refill(s) Start Date: 09/13/15 Status: Ordered heparin 5,000 unit, 1 mL, Route: SUB-Q, Drug form: INJ, Q8H, Dosing Weight 71.5, kg, Alexandra ority: Routine, Start date: 09/14/15 8:00:00, Duration: 30 day, Stop date: 10/13 0:00:00 Notes: porcine heparin Start Date: 09/14/15 Stop Date: 09/18/15 Status: Discontinued hydrALAZINE 10 mg, 0.5 mL, Route: IVP, Drug form: INJ, Q4H, Dosing Weight 71.5, kg, PRN Hype rtension, Start date: 09/13/15 4:21:00, Duration: 30 day, Stop date: 10/13/15 4: 20:00 Notes: (Same as: Apresoline)Push over 5 minutes Start Date: 09/13/15 Stop Date: 09/18/15 Status: Discontinued hydrochlorothiazide 12.5 mg oral tablet 12.5 mg=1 tab, PO, Daily, 0 Refill(s) Start Date: 09/13/15 Stop Date: 09/17/15 Status: Discontinued hydroxychloroquine sulfate 200 mg oral tablet 200 mg, 1 tab, Route: PO, Drug form: TAB, BID, Dosing Weight 71.5, kg, Start ric e: 09/14/15 9:00:00, Duration: 30 day, Stop date: 10/13/15 17:00:00 Notes: (Same as: Plaquenil)Hydroxychloroquine sulfate 200 ej=288 mg hydroxychlor oquine base. If treating malaria, verify dose as salt vs. base per CDC guideline Start Date: 09/14/15 Stop Date: 09/18/15 Status: Discontinued hydroxychloroquine sulfate 200 mg oral tablet 200 mg=1 tab, PO, Q12H, 0 Refill(s) Start Date: 09/13/15 Status: Ordered Keppra 500 mg oral tablet 750 mg, 3 tab, Route: PO, Drug form: TAB, Q12H, Dosing Weight 71.5, kg, Start da te: 09/13/15 9:00:00, Duration: 30 day, Stop date: 10/12/15 21:00:00 Notes: (Same as:Keppra) Start Date: 09/13/15 Stop Date: 09/14/15 Status: Discontinued Keppra 500 mg oral tablet 1,000 mg, 2 tab, Route: PO, Drug form: TAB, Q12H, Dosing Weight 71.5, kg, Start date: 09/14/15 21:00:00, Duration: 30 day, Stop date: 10/14/15 9:00:00 Notes: (Same as:Keppra) Start Date: 09/14/15 Stop Date: 09/18/15 Status: Discontinued Keppra 500 mg oral tablet 1,000 mg=2 tab, PO, Q12H, # 120 tab, 0 Refill(s) Start Date: 09/17/15 Stop Date: 10/17/15 Status: Ordered Keppra XR 750 mg oral tablet, extended release 750 mg=1 tab, PO, Daily, 0 Refill(s) Start Date: 09/13/15 Stop Date: 09/17/15 Status: Discontinued labetalol 100 mg, 1 tab, Route: PO, Drug form: TAB, Q12H, Dosing Weight 71.5, kg, Priority : NOW, Start date: 09/16/15 4:07:00, Stop date: 10/15/15 21:00:00 Notes: With food. (Same as:Trandalouis Normodyne) Start Date: 09/16/15 Stop Date: 09/16/15 Status: Discontinued labetalol 10 mg, 2 mL, Route: IVP, Drug form: INJ, Q10Min, Dosing Weight 71.5, kg, PRN Hyp ertension, For SBP > 150mmHg, Start date: 09/13/15 5:38:00, Duration: 3 doses or times, Stop date: Limited # of times Start Date: 09/13/15 Stop Date: 09/14/15 Status: Completed labetalol 10 mg, 2 mL, Route: IV, Drug form: INJ, Q1H, Dosing Weight 71.5, kg, PRN Other - See Comment, Start date: 09/13/15 5:27:00, Duration: 30 day, Stop date: 10/13/15 5:26:00, SBP > 150 Start Date: 09/13/15 Stop Date: 09/18/15 Status: Discontinued labetalol 100 mg, 1 tab, Route: PO, Drug form: TAB, Q8H, Dosing Weight 71.5, kg, Priority: NOW, Start date: 09/16/15 16:53:00, Duration: 30 day, Stop date: 10/16/15 16:00 :00 Notes: With food. (Same as:Trandalouis Normodyne) Start Date: 09/16/15 Stop Date: 09/17/15 Status: Discontinued labetalol 200 mg, 1 tab, Route: PO, Drug form: TAB, Q8H, Dosing Weight 71.5, kg, Start ric e: 09/17/15 16:00:00, Duration: 30 day, Stop date: 10/17/15 8:00:00 Notes: With food. (Same as:Trandate, Normodyne) Start Date: 09/17/15 Stop Date: 09/18/15 Status: Discontinued labetalol 100 mg oral tablet 200 mg=2 tab, PO, Q8H, # 180 tab, 0 Refill(s) Start Date: 09/17/15 Stop Date: 10/17/15 Status: Ordered losartan 50 mg oral tablet 100 mg=2 tab, PO, Daily, # 60 tab, 0 Refill(s) Start Date: 09/17/15 Stop Date: 10/17/15 Status: Ordered magnesium oxide 400 mg, 1 tab, Route: PO, Drug form: TAB, Daily, Dosing Weight 71.5, kg, Start d ate: 09/15/15 11:33:00, Duration: 30 day, Stop date: 10/15/15 9:00:00 Notes: (Same as: Mag-Ox 400)Magnesium oxide [id number] elemental magnesiumDose= ____mg magnesium oxide (___mg elemental magnesium) Start Date: 09/15/15 Stop Date: 09/18/15 Status: Discontinued magnesium oxide 500 mg oral tablet 500 mg=1 tab, PO, Daily, 0 Refill(s) Start Date: 09/13/15 Status: Ordered methotrexate 2.5 mg oral tablet 7.5 mg=3 tab, PO, Q7D Start Date: 09/15/15 Status: Ordered methotrexate 2.5 mg oral tablet 2.5 mg=1 tab, PO, qWeek, 0 Refill(s) Start Date: 09/13/15 Stop Date: 09/15/15 Status: Discontinued metoprolol 100 mg oral tablet, extended release 100 mg=1 tab, PO, Daily Start Date: 09/15/15 Stop Date: 09/17/15 Status: Discontinued metoprolol extended release 100 mg, 1 tab, Route: PO, Drug form: ERTAB, Daily, Priority: NOW, Start date: 12:17:00, Duration: 30 day, Stop date: 10/13/15 9:00:00 Notes: (Same as: Toprol XL) May split tab, but do not crush. Start Date: 09/13/15 Stop Date: 09/13/15 Status: Discontinued metoprolol tartrate 50 mg, 1 tab, Route: PO, Drug form: TAB, Q12H, Dosing Weight 71.5, kg, Start ric e: 09/13/15 21:00:00, Duration: 30 day, Stop date: 10/13/15 9:00:00 Notes: (Same as: Lopressor) Start Date: 09/13/15 Stop Date: 09/16/15 Status: Discontinued Multihance 529 mg/mL 7,564.7 mg, 14.3 mL, Route: IVP, Drug form: INJ, ONCALL, Dosing Weight 71.5, kg, GFR > 39 ml/min, Priority: STAT, Start date: 09/14/15 23:00:00, Duration: 1 doses or times Notes: Same as Multihance Start Date: 09/14/15 Stop Date: 09/15/15 Status: Completed niCARdipine 40 mg in NS 200 mL (Titrate.) IV 40 mg 40 mg, 200 mL, Rate: Titrate, Start Dose: 5 mg/hr, Titration: 2.5 mg/hour every 15 minutes, Goal(s): goal SBP 110-150, Max Dose: 15 mg/hr, Route: IV, Dosing Eliecer ght 71.5 kg, Total Volume: 200, Start date: 09/13/15 5:38:00, Duration: 30 day, Stop date:... Notes: Same as: CardeneConcentration: (0.2 mg /1 ml ) Start Date: 09/13/15 Stop Date: 09/15/15 Status: Discontinued NS 1,000 mL 1,000 mL, Rate: 75 ml/hr, Infuse over: 13.3 hr, Route: IV, Dosing Weight 71.5 kg , Total Volume: 1,000, Start date: 09/13/15 2:33:00, Duration: 30 day, Stop date : 10/13/15 2:32:00 Start Date: 09/13/15 Stop Date: 09/13/15 Status: Discontinued omega-3 polyunsaturated fatty acids PO, 0 Refill(s) Start Date: 09/13/15 Stop Date: 09/17/15 Status: Discontinued oxaprozin 600 mg oral tablet 1,200 mg=2 tab, PO, Daily, 0 Refill(s) Start Date: 09/13/15 Stop Date: 09/15/15 Status: Discontinued Plavix 75 mg oral tablet 75 mg=1 tab, PO, Daily, # 30 tab, 0 Refill(s) Start Date: 09/15/15 Stop Date: 09/17/15 Status: Discontinued pneumococcal 23-valent vaccine 0.5 mL, Route: IM, Drug Form: INJ, Daily, Start date: 09/13/15 9:00:00, Duration : 1 doses or times, Stop date: 09/13/15 9:00:00 Notes: (Same as: Pneumovax 23) Refrigerate Start Date: 09/13/15 Stop Date: 09/13/15 Status: Completed potassium chloride 20 mEq, 100 mL, Route: IVPB, Drug form: INJ, ONCE, Dosing Weight 71.5, kg, Start date: 09/13/15 3:58:00, Stop date: 09/13/15 3:58:00, Central Line Notes: (Same as: KCL) Infuse no faster than 10 mEq/hr if given peripherally. Start Date: 09/13/15 Stop Date: 09/13/15 Status: Completed potassium chloride 10 mEq oral tablet, extended release 10 mEq, 1 tab, Route: PO, Drug form: ERTAB, ONCE, Dosing Weight 71.5, kg, Start date: 09/14/15 6:53:00, Stop date: 09/14/15 6:53:00 Notes: (Same as: K-Dur 10)"Do Not Crush" With food and full glass of water Start Date: 09/14/15 Stop Date: 09/14/15 Status: Completed Multivitamins with Folic Acid 1 mg oral tablet 1 mg=1 tab, PO, Daily, # 30 tab, 0 Refill(s) Start Date: 09/17/15 Stop Date: 10/17/15 Status: Ordered Multivitamins with Folic Acid 1 mg oral tablet 1 tab, Route: PO, Drug Form: TAB, Dosing Weight 71.5, kg, Daily, Start date: 08/25 9:00:00, Duration: 30 day, Stop date: 10/12/15 9:00:00 Start Date: 09/13/15 Stop Date: 09/18/15 Status: Discontinued Saline Flush 0.9% 10 ml, Route: IVP, Drug Form: INJ, Dosing Weight 71.5, kg, PRN, PRN Line Flush, Start date: 09/13/15 5:38:00, Duration: 30 day, Stop date: 10/13/15 5:37:00 Notes: Same as: BD Posiflush Sterile Start Date: 09/13/15 Stop Date: 09/18/15 Status: Discontinued Saline Flush 0.9% 10 ml, Route: IVP, Drug Form: INJ, Dosing Weight 71.5, kg, Q12H, Start date: 08/25 9:00:00, Duration: 30 day, Stop date: 10/12/15 21:00:00 Notes: (Same as: BD Posiflush) Start Date: 09/13/15 Stop Date: 09/18/15 Status: Discontinued senna 17.2 mg, 2 tab, Route: PO, Drug Form: TAB, kg, Daily, Start date: 09/13/15 9:00: 00, Duration: 30 day, Stop date: 10/12/15 9:00:00 Notes: (Same as: Senokot) Start Date: 09/13/15 Stop Date: 09/18/15 Status: Discontinued Singulair 10 mg, 1 tab, Route: PO, Drug form: TAB, Bedtime, Dosing Weight 71.5, kg, Start date: 09/13/15 21:00:00, Duration: 30 day, Stop date: 10/12/15 21:00:00 Notes: (Same as:Singulair) Start Date: 09/13/15 Stop Date: 09/18/15 Status: Discontinued Singulair 10 mg oral tablet 10 mg=1 tab, PO, QPM, 0 Refill(s) Start Date: 09/13/15 Status: Ordered Travatan Z 0.004% ophthalmic solution 1 drp, BOTH EYES, QPM, 0 Refill(s) Start Date: 09/13/15 Status: Ordered travoprost 0.004% ophthalmic solution 1 drp, Route: LEFT EYE, Bedtime, Drug form: SOLN, Start date: 09/13/15 21:00:00, Duration: 30 day, Stop date: 10/12/15 21:00:00 Notes: Same As: Travatan or Travatan Z Start Date: 09/13/15 Stop Date: 09/18/15 Status: Discontinued triamcinolone nasal 55 mcg/inh spray 2 spray, NASAL, Daily, 0 Refill(s) Start Date: 09/13/15 Status: Ordered Tylenol 650 mg, 2 tab, Route: PO, Drug form: TAB, Q6H, Dosing Weight 71.5, kg, PRN Pain 1-3/Temp > 100.4 F, Start date: 09/13/15 18:11:00, Duration: 30 day, Stop date: 10/13/15 18:10:00 Notes: Do not exceed 4 gm/day. (Same as: Tylenol) Start Date: 09/13/15 Stop Date: 09/18/15 Status: Discontinued Vitamin B12 2,500 microgram, SL, Daily, 0 Refill(s) Start Date: 09/13/15 Status: Ordered Vitamin B12 2,500 microgram, 5 tab, Route: PO, Drug form: TAB, Daily, Dosing Weight 71.5, kg , Start date: 09/15/15 11:38:00, Duration: 30 day, Stop date: 10/15/15 9:00:00 Notes: (Same As: Vitamin B12) Start Date: 09/15/15 Stop Date: 09/18/15 Status: Discontinued Vitamin D3 5000 intl units oral tablet 5,000 IntlUnit=1 tab, PO, Daily, 0 Refill(s) Start Date: 09/13/15 Status: Ordered Voltaren Topical 1% topical gel TOP, 0 Refill(s) Start Date: 09/13/15 Status: Ordered ZyrTEC 10 mg, 1 tab, Route: PO, Drug form: TAB, Daily, Dosing Weight 71.5, kg, PRN as n eeded for allergy symptoms, Start date: 09/15/15 11:10:00, Duration: 30 day, Sto p date: 10/15/15 11:09:00 Notes: (Same As: Zyrtec) Start Date: 09/15/15 Stop Date: 09/18/15 Status: Discontinued ZyrTEC 10 mg oral tablet 10 mg=1 tab, PO, Daily, PRN as needed for allergy symptoms, 0 Refill(s) Start Date: 09/13/15 Status: Ordered Results BLOOD BANK RESULTS 1 2 3 Most recent to oldest [Reference Range]: O POS *Unknown* (09/13/15 2:28 AM) ABO/Rh Negative (09/13/15 2:28 AM) Antibody Scrn ELECTROLYTES 1 2 3 Most recent to oldest [Reference Range]: 131 mEq/L *LOW* (09/17/15 2:51 AM) 134 mEq/L *LOW* (09/16/15 4:49 AM) 133 mEq/L *LOW* (09/15/15 5:00 AM) Sodium Lvl [135-145 mEq/L] 3.4 mEq/L *LOW* (09/17/15 2:51 AM) 3.5 mEq/L (09/16/15 4:49 AM) 3.5 mEq/L (09/15/15 5:00 AM) Potassium Lvl [3.5-5.1 mEq/L] 95 mEq/L (09/17/15 2:51 AM) 100 mEq/L (09/16/15 4:49 AM) 99 mEq/L (09/15/15 5:00 AM) Chloride Lvl [95-109 mEq/L] 23 mEq/L *LOW* (09/17/15 2:51 AM) 23 mEq/L *LOW* (09/16/15 4:49 AM) 24 mEq/L (09/15/15 5:00 AM) CO2 [24-32 mEq/L] 16.4 mEq/L (09/17/15 2:51 AM) 14.5 mEq/L (09/16/15 4:49 AM) 13.5 mEq/L (09/15/15 5:00 AM) AGAP [10.0-20.0 mEq/L] CHEM PANEL 1 2 3 Most recent to oldest [Reference Range]: 0.74 mg/dL (09/17/15 2:51 AM) 0.63 mg/dL (09/16/15 4:49 AM) 0.62 mg/dL (09/15/15 5:00 AM) Creatinine Lvl [0.50-1.40 mg/dL] 79 mL/min/1.73m2 1 *NA* (09/17/15 2:51 AM) 88 mL/min/1.73m2 2 *NA* (09/16/15 4:49 AM) 89 mL/min/1.73m2 3 *NA* (09/15/15 5:00 AM) eGFR 17 mg/dL (09/17/15 2:51 AM) 15 mg/dL (09/16/15 4:49 AM) 14 mg/dL (09/15/15 5:00 AM) BUN [7-22 mg/dL] 19 (09/13/15 2:28 AM) B/C Ratio [6-25] 116 mg/dL *HI* (09/17/15 2:51 AM) 113 mg/dL *HI* (09/16/15 4:49 AM) 95 mg/dL (09/15/15 5:00 AM) Glucose Lvl [70-99 mg/dL] 7.3 g/dL (09/13/15 7:03 AM) 7.5 g/dL (09/13/15 2:28 AM) Total Protein [6.4-8.4 g/dL] 3.8 g/dL (09/13/15 7:03 AM) 4.0 g/dL (09/13/15 2:28 AM) Albumin Lvl [3.5-5.0 g/dL] 3.5 g/dL (09/13/15 7:03 AM) 3.5 g/dL (09/13/15 2:28 AM) Globulin [2.0-4.0 g/dL] 1.1 (09/13/15 7:03 AM) 1.1 (09/13/15 2:28 AM) A/G Ratio [0.7-1.6] 9.0 mg/dL (09/17/15 2:51 AM) 9.4 mg/dL (09/16/15 4:49 AM) 8.7 mg/dL (09/15/15 5:00 AM) Calcium Lvl [8.5-10.5 mg/dL] 3.4 mg/dL (09/16/15 4:49 AM) 2.3 mg/dL *LOW* (09/15/15 5:00 AM) 3.5 mg/dL (09/13/15 2:28 AM) Phosphorus [2.5-4.5 mg/dL] 2.4 mg/dL (09/16/15 4:49 AM) 2.3 mg/dL (09/15/15 5:00 AM) 2.5 mg/dL *HI* (09/13/15 2:28 AM) Magnesium Lvl [1.8-2.4 mg/dL] 22 unit/L (09/13/15 7:03 AM) 26 unit/L (09/13/15 2:28 AM) ALT [0-65 unit/L] 20 unit/L (09/13/15 7:03 AM) 26 unit/L (09/13/15 2:28 AM) AST [0-37 unit/L] 73 unit/L (09/13/15 7:03 AM) 72 unit/L (09/13/15 2:28 AM) Alk Phos [39-136 unit/L] 0.7 mg/dL (09/13/15 7:03 AM) 0.8 mg/dL (09/13/15 2:28 AM) Bili Total [0.2-1.3 mg/dL] 0.1 mg/dL (09/13/15 7:03 AM) Bili Direct [0.0-0.3 mg/dL] 0.6 mg/dL (09/13/15 7:03 AM) Bili Indirect [0.0-1.0 mg/dL] 1Result Comment: The eGFR is calculated using the [...] from the National Kid[employer] Disease Education Program ( NKDEP) which additionally recommends that when the eGFR is used in patients with extremes of body mass index for purposes of drug dosing, the eGFR should be mul tiplied by the estimated BMI. 2Result Comment: The eGFR is calculated using the [...] from the National Kid[employer] Education Program ( NKDEP) which additionally recommends that when the eGFR is used in patients with extremes of body mass index for purposes of drug dosing, the eGFR should be mul tiplied by the estimated BMI. 3Result Comment: The eGFR is calculated using the [...] from the National Kid[employer] Disease Education Program ( NKDEP) which additionally recommends that when the eGFR is used in patients with extremes of body mass index for purposes of drug dosing, the eGFR should be mul tiplied by the estimated BMI. CARDIAC ENZYMES 1 2 3 Most recent to oldest [Reference Range]: 108 unit/L (09/13/15 6:02 PM) 105 unit/L (09/13/15 12:36 PM) Total CK [12-191 unit/L] 1.4 ng/mL (09/13/15 6:02 PM) <0.5 ng/mL (09/13/15 12:36 PM) CK MB [0.5-3.6 ng/mL] 1.3 (09/13/15 6:02 PM) <0.5 (09/13/15 12:36 PM) CK MB Index [0.0-2.5] <0.010 ng/mL (09/13/15 6:02 PM) <0.010 ng/mL (09/13/15 12:36 PM) Troponin-T [0.000-0.100 ng/mL] <0.02 ng/mL (09/13/15 6:02 PM) <0.02 ng/mL (09/13/15 12:36 PM) <0.02 ng/mL (09/13/15 2:28 AM) Troponin-I [0.00-0.40 ng/mL] LIPIDS 1 2 3 Most recent to oldest [Reference Range]: 2.75 *LOW* (09/13/15 7:03 AM) CHD Risk [3.90-5.80] 173 mg/dL (09/13/15 7:03 AM) Chol [<=199 mg/dL] 93 mg/dL (09/13/15 7:03 AM) Trig [<=149 mg/dL] 63 mg/dL (09/13/15 7:03 AM) HDL [>=61 mg/dL] 91 mg/dL (09/13/15 7:03 AM) LDL (Calculated) [<=99 mg/dL] 19 *NA* (09/13/15 7:03 AM) VLDL SPECIAL CHEMISTRY 1 2 3 Most recent to oldest [Reference Range]: 5.0 % (09/13/15 7:03 AM) Hgb A1C [<=5.6 %] PARATHYROID PROFILE 1 2 3 Most recent to oldest [Reference Range]: 1.18 mMol/L (09/16/15 4:49 AM) 1.09 mMol/L (09/13/15 2:28 AM) Ca Ion WB [1.05-1.25 mMol/L] 1.22 mMol/L (09/16/15 4:49 AM) 1.09 mMol/L (09/13/15 2:28 AM) Ca Norm WB [1.05-1.25 mMol/L] URINE AND STOOL 1 2 3 Most recent to oldest [Reference Range]: Clear (09/13/15 8:29 AM) UA Turbidity [Clear] Yellow *NA* (09/13/15 8:29 AM) UA Color [Yellow] 7.5 (09/13/15 8:29 AM) UA pH [5.0-8.0] 1.041 *HI* (09/13/15 8:29 AM) UA Spec Grav [<=1.030] Negative mg/dL *NA* (09/13/15 8:29 AM) UA Glucose [Negative mg/dL] Negative (09/13/15 8:29 AM) UA Blood [Negative] Negative mg/dL *NA* (09/13/15 8:29 AM) UA Ketones [Negative mg/dL] 10 mg/dL *ABN* (09/13/15 8:29 AM) UA Protein [Negative mg/dL] <=1.0 mg/dL *NA* (09/13/15 8:29 AM) UA Urobilinogen [0.1-1.0 mg/dL] Negative *NA* (09/13/15 8:29 AM) UA Bili [Negative] Negative (09/13/15 8:29 AM) UA Leuk Est [Negative] Negative (09/13/15 8:29 AM) UA Nitrite [Negative] 2 /HPF (09/13/15 8:29 AM) UA WBC [0-5 /HPF] 2 /HPF (09/13/15 8:29 AM) UA RBC [0-2 /HPF] None Seen *NA* (09/13/15 8:29 AM) UA Sq Epi HEMATOLOGY 1 2 3 Most recent to oldest [Reference Range]: 8.7 K/CMM (09/17/15 2:51 AM) 8.5 K/CMM (09/16/15 4:49 AM) 8.3 K/CMM (09/15/15 5:00 AM) WBC [3.7-10.4 K/CMM] 3.47 M/CMM *LOW* (09/17/15 2:51 AM) 3.79 M/CMM *LOW* (09/16/15 4:49 AM) 3.71 M/CMM *LOW* (09/15/15 5:00 AM) RBC [4.20-5.40 M/CMM] 11.0 g/dL *LOW* (09/17/15 2:51 AM) 12.1 g/dL (09/16/15 4:49 AM) 11.6 g/dL *LOW* (09/15/15 5:00 AM) Hgb [12.0-16.0 g/dL] 31.7 % *LOW* (09/17/15 2:51 AM) 34.5 % *LOW* (09/16/15 4:49 AM) 34.1 % *LOW* (09/15/15 5:00 AM) Hct [36.0-48.0 %] 91.3 fL (09/17/15 2:51 AM) 91.0 fL (09/16/15 4:49 AM) 91.8 fL (09/15/15 5:00 AM) MCV [80.0-98.0 fL] 31.8 pg *HI* (09/17/15 2:51 AM) 31.8 pg *HI* (09/16/15 4:49 AM) 31.3 pg *HI* (09/15/15 5:00 AM) MCH [27.0-31.0 pg] 34.8 g/dL (09/17/15 2:51 AM) 35.0 g/dL (09/16/15 4:49 AM) 34.1 g/dL (09/15/15 5:00 AM) MCHC [32.0-36.0 g/dL] 15.7 % *HI* (09/17/15 2:51 AM) 15.4 % *HI* (09/16/15 4:49 AM) 15.9 % *HI* (09/15/15 5:00 AM) RDW [11.5-14.5 %] 311 K/CMM (09/17/15 2:51 AM) 340 K/CMM (09/16/15 4:49 AM) 326 K/CMM (09/15/15 5:00 AM) Platelet [133-450 K/CMM] 6.4 fL *LOW* (09/17/15 2:51 AM) 6.3 fL *LOW* (09/16/15 4:49 AM) 6.5 fL *LOW* (09/15/15 5:00 AM) MPV [7.4-10.4 fL] 76.5 % *HI* (09/17/15 2:51 AM) 77.9 % *HI* (09/16/15 4:49 AM) 73.4 % (09/15/15 5:00 AM) Segs [45.0-75.0 %] 13.1 % *LOW* (09/17/15 2:51 AM) 13.2 % *LOW* (09/16/15 4:49 AM) 17.1 % *LOW* (09/15/15 5:00 AM) Lymphocytes [20.0-40.0 %] 9.6 % (09/17/15 2:51 AM) 7.1 % (09/16/15 4:49 AM) 7.8 % (09/15/15 5:00 AM) Monocytes [2.0-12.0 %] 0.5 % (09/17/15 2:51 AM) 1.1 % (09/16/15 4:49 AM) 1.2 % (09/15/15 5:00 AM) Eosinophils [0.0-4.0 %] 0.3 % (09/17/15 2:51 AM) 0.7 % (09/16/15 4:49 AM) 0.5 % (09/15/15 5:00 AM) Basophils [0.0-1.0 %] 6.6 K/CMM (09/17/15 2:51 AM) 6.6 K/CMM (09/16/15 4:49 AM) 6.1 K/CMM (09/15/15 5:00 AM) Segs-Bands # [1.5-8.1 K/CMM] 1.1 K/CMM (09/17/15 2:51 AM) 1.1 K/CMM (09/16/15 4:49 AM) 1.4 K/CMM (09/15/15 5:00 AM) Lymphocytes # [1.0-5.5 K/CMM] 0.8 K/CMM (09/17/15 2:51 AM) 0.6 K/CMM (09/16/15 4:49 AM) 0.7 K/CMM (09/15/15 5:00 AM) Monocytes # [0.0-0.8 K/CMM] 0.1 K/CMM (09/16/15 4:49 AM) 0.1 K/CMM (09/15/15 5:00 AM) Eosinophils # [0.0-0.5 K/CMM] 0.1 K/CMM (09/16/15 4:49 AM) Basophils # [0.0-0.2 K/CMM] 13.7 seconds (09/15/15 5:00 AM) 13.3 seconds (09/13/15 7:03 AM) PT [12.0-14.7 seconds] 1.02 (09/15/15 5:00 AM) 0.98 (09/13/15 7:03 AM) INR [0.85-1.17] 27.3 seconds (09/15/15 5:00 AM) 25.5 seconds (09/13/15 7:03 AM) PTT [22.9-35.8 seconds] 3.1 minutes *LOW* (09/13/15 2:28 AM) R-time [5.0-10.0 minutes] 0.9 minutes *LOW* (09/13/15 2:28 AM) K-time [1.0-3.0 minutes] 75.0 degrees *HI* (09/13/15 2:28 AM) Angle [53.0-72.0 degrees] 71.4 mm *HI* (09/13/15 2:28 AM) Max Amp [50.0-70.0 mm] 12.5 K d/sc *HI* (09/13/15 2:28 AM) G-value [4.5-11.0 K d/sc] 0.9 % (09/13/15 2:28 AM) Ly30 [0.0-7.5 %] 4.3 *HI* (09/13/15 2:28 AM) Coag Index [-3.0-3.0] Thrombelastograph results show shortened value of R and increased values of both Angle Alpha and MA. These findings are suggestive of platelet and enzymatic hypercoagulation which may be seen in early phase of DIC. Monitor for DIC with DIC panel may be indicated. CPT:54612 *NA* (09/13/15 2:28 AM) TEG Interp See Note (09/13/15 2:28 AM) TEG Data BACTERIAL - SEROLOGY 1 2 3 Most recent to oldest [Reference Range]: Negative (09/13/15 12:36 PM) MRSA by PCR Immunizations Vaccine Date Refusal Reason pneumococcal 23-valent vaccine 09/13/15 Procedures Procedure Date Related Diagnosis Body Site MRI 04/10/14 MRI - Magnetic resonance imaging1 04/10/14 1w/ contrast for TIAs Social History Social History Type Response Smoking Status Never smoker; Exposure to Tobacco Smoke None; Cigarette Smoking Last 365 Days No; Reg Smoking Cessation Counseling No Assessment and Plan Extracted from: Title: Hospitalist Progress Note Author: Kaitlin Ryan MD Date: 09/16/15 Assessment/Plan 74 year old admitted with acute ICH. 1.Acute intracranial hemorrhage, right frontal Managed by the primary team. Needs better blood pressure control. 2.Right sided weakness + aphasia Per primary team. 3.HTN (hypertension) Uncontrolled. I will increase Labetalol to 100 mg Po q 8 hours. Ordered: labetalol, 100 mg, 1 tab, Route: PO, Drug form: TAB, Q8H, Dosing Weight 71.5, kg, Priority: NOW, Start date: 09/16/15 16:53:00, Duration: 30 day, Stop date: 10/16/15 16:00:00 4.History of epilepsy On Keppra. 5.Mild anemia No evidence of active bleeding. 6.Chronic inflammatory arthritis + dermatitis 7.Macular degeneration Prophylaxis Heparin SQ. Disposition Pending discharge home once blood pressure under better control. Please page [phone] with questions. Extracted from: Title: [facility] Author: Mikhail Grace Date: 09/16/15 Impression and Plan 74 yo F with recent CVA with AUR. 1. Discussed with family management of bladder given inablity to void or sense need to void. Options at this point include timed intermittent catheterization versus indwelling urethral catheter. Discussed the risks and benefits of each. Patient family would like to discuss further amongst themselves. Regardless, patient may follow up with the [facility] after discharge for further management. Phone number provided to patient family. We would defer urodynamics until at least 8 weeks from neurologic insult. Mikhail Grace MD [facility] PGY-3 Dr. Pierce: I saw and examined the patient, agree with the H+P and formed the plan described by Dr. Grace. Extracted from: Title: Stroke H&P Author: Aleena Miranda MD Date: 09/13/15 STROKE TEAM / NEUROLOGY - HISTORY AND PHYSICAL CC: confusion HISTORY OF PRESENT ILLNESS: Patient is a 74 year old R handed female with a past medical history HTN, seizures and arthritis. Was found 8 AM. She was able to talk, she was clamy, helped her back to bed and she got up later sat in chair and was taking a little bit. She was given Rembert juice, she threw up. She was able to move around and talk but was sleepy and only responded when someone talked to her. At 9 PM she started to sound confused. [phone] called patient was taken to OSH where a CTH showed R frontal ICH Patient had 3 episodes of aphasia for 15-20 seconds. She was started on plavix and Keppra 1 year ago and has not had speech problems since. Rpeat CTH stable. Patient was given 1 U platelets per ICU team. GCS on admission 14. REVIEW OF SYSTEMS: GEN: no fever, chills, weight loss, fatigue EYES: no blurred vision, double vision CARDIO: no chest pain, palpitations PULM: no shortness of breath, cough GI: no nausea, vomiting, diarrhea, no abd pain : no frequency, dysuria, hematuria NEURO: see HPI SKIN: no rash or lesion MSK: no pain, swelling, redness, heat in muscles, no limited ROM, weakness, or atrophy, no cramps LYMPH/IMMUNO: No lymph node enlargement/tenderness, no heat/cold intolerance PAST MEDICAL HISTORY: Hypertension Arthritis "clot in the back of the left retina" PAST SURGICAL HISTORY: blader suspension FAMILY MEDICAL HISTORY: no family history of stroke SOCIAL HISTORY: denies smoking, alcohol or drug use MEDICATIONS: Metoprolol ER 100mg daily Edarbi 80 mg daily Amlodipine 10 mg daily plavix 75 mg daily Singulair 10 daily Plaquenil 200mg BID MTX 7.5 mg weekly Daypro 600mg daily Keppra 750 md daily Avastin 1 injection every 6 weeks multivitamin ALLERGIES: PHYSICAL EXAM: Vital Signs: Vitals and Temp: VitalsTmp(F)[id number] 09/12 05:00----[id number]--- 09/12 04:00----[id number]--- 09/12 03:39----71-----2393--- 09/12 02:15----[id number]--- 09/12 02:00----[id number]--- 24 Hr Tmax: No Data AvailableVital Signs are the last 5 in the past 48 hours. GENERAL: drowsy, easily rousable by voice, NAD. HEENT: - Normocephalic and atraumatic; MMM LUNGS - Clear to auscultation bilaterally with no wheezes CV - S1S2 RRR, no m/r/g, equal pulses bilaterally. ABDOMEN - Soft, nontender, nondistended with normoactive BS NEURO: Mental status: sleepy, arousable, and interactive. Answers questions and follows commands appropriately. Cranial nerves: Pupils equal, round, and reactive. 3 _mm. Visual moreno intact to confrontation. Eye movements full without nystagmus. Face symmetric at rest and with activation. Facial sensation is intact to light touch. Tongue and palate midline. Good strength in trapezius and sternocleidomastoid bilaterally. Motor: Normal bulk and tone. Strength is 5/5 proximally and distally. Sensation: Intact to light touch, pinprick, temperature and vibration throughout. Coordination: No dysmetria on finger-nose Reflexes: R Biceps 2+, Triceps 2+, Brachioradialis 2+, Patella 2+, Ankle 2+. L Biceps 2+, Triceps 2+, Brachioradialis 2+, Patella 2+, Ankle 2+. Toes downgoing bilaterally. Gait: narrow-based and steady with appropriate armswing and stride length. NIH Stroke Scale (NIHSS) 1 1a. Level of Consciousness; 0-alert 1-drowsy 2-stupor 3-comatose 0 1b. LOC Questions month and age; 0-both 1-one 2-neither 0 1c. LOC Commands open/close eyes, wash driller/release non-paretic hand; 0-both 1-one 2-neither 0 2. Best Gaze; 0-nl 1-partial 2-forced gaze 0 3. Visual Moreno; 0-No visual loss. 1-Partial hemianopia 2-Complete 3- Bilateral 0 4. Facial Palsy; 0-none 1-minor 2-partial 3-complete 0 5. Motor - R arm; 0-No drift 1-Drift 2-Some antigravity 3-No antigravity 4-No movement 0 6. Motor - R leg; 0-No drift 1-Drift 2-Some antigravity 3-No antigravity 4-No movement 0 7. Motor - L arm; 0-No drift 1-Drift 2-Some antigravity 3-No antigravity 4-No movement 0 8. Motor - L leg; 0-No drift 1-Drift 2-Some antigravity 3-No antigravity 4-No movement 0 9. Limb Ataxia; 0 absent 1 - 1limb 2 - 2 limbs 0 10. Sensory; 0-nl 1-partial loss 2-dense loss 0 11. Best Language; 0-nl 1-mild/mod 2-severe 3-mute 0 12. Dysarthria; 0-nl 1-mild/mod 2-severe x-untestable 0 13. Extinction and Inattention (formerly Neglect); 0-none 1-partial 2-complete TOTAL SCORE 1 SIGNIFICANT LABS: 24hr Labs 09/12 0357 Glucose HNH649 H 09/12 0228 Antibody ScrnNegative ABO/RhO POS Ca Ion WB1.09 Ca Norm WB1.09 Sodium Tva927 L Potassium Lvl3.8 Chloride Lvl99 CO224 AGAP14.8 Glucose Bov024 H Creatinine Lvl0.73 BUN14 B/C Ratio19 Total Protein7.5 Albumin Lvl4.0 Globulin3.5 A/G Ratio1.1 Calcium Lvl9.1 ALT26 AST26 Alk Phos72 Bili Total0.8 eGFR81 Magnesium Lvl2.5 H Phosphorus3.5 Troponin-I<0.02 WBC9.9 RBC4.06 L Hgb13.2 Hct37.1 MCV91.4 MCH32.6 H MCHC35.6 RDW15.4 H Yxsvhbxv505 MPV6.2 L Segs84.0 H Monocytes6.1 Lymphocytes9.5 L Eosinophils0.1 Basophils0.3 Segs-Bands #8.3 H Lymphocytes #0.9 L Monocytes #0.6 R-time3.1 L K-time0.9 L Angle75.0 H Max Amp71.4 H G-value12.5 H Ly300.9 Coag Index4.3 H TEG DataSee Note DIAGNOSTIC TESTS: CT Head OSH 28.8 cc L frontal cortical hemorrhage Repeat CTH on admission 26.4 cc, stable CTA/Perfusion: no acute changes or underlying malformations MRI/MRV of head: pending EKG: NSR ASSESSMENT: 74 year old R handed female with a past medical history HTN, seizures and arthritis. With a day of progressive confusion admitted for R frontal hemorrhage. The hemmorrhage is cortical/lobar concerning for amyloid VST and trauma. Pt is S/P platelet transfusion by ICU team DIFFERENTIAL DIAGNOSIS PLAN - Admit to NRICU - MRI brain W/WO contrast to evaluate for amyloid and underlying mass - MRV to evlauate for VST. - SBP goal 110-150 - Follow up coags THE FOLLOWING WERE PRESENT ON ADMISSION: INDUSTRIAL ENGINEERING MANAGER - R frontal ICH Aleena Miranda MD [facility], PGY-3 Neurology Department Pager Ext [phone] STROKE STAFF I have personally evaluated the patient. i have reviewed the resident 's note detailed above. I agree with the resident's findings, assessment and plan as outlined in the note except as detailed below. In addition, i have reviewed the patient's neuroimaging findings which reveal: CT 09/12: left frontal ICH, with mild mass effect CTA/CTP: no obvious vascular abnormality to explain hemorrhage MRI: pending exam: RLE weakness impression/Plan: THE FOLLOWING WERE PRESENT ON ADMISSION: PRINCIPLE DIAGNOSIS: I 61.1 Nontraumatic intracerebral hemorrhage in hemisphere, cortical Cerebral lobe hemorrhage (nontraumatic) Superficial intracerebral hemorrhage (nontraumatic) etiology: unknown, suspect amyloidosis, evaluation in progress diagnostic evaluation: follow-up study report, MRI brain treatment plan: blood pressure control, PT/OT/ST, dvt prophylaxis once hematoma stability is documented; patient presented too close to 24hr window for consideration of iDEF; transfer to stroke unit G93.6, cerebral edema -monitor clinically/radiographically -manage medically G93.5, brain herniation/brain compression hyponatremia 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
--- OUTSIDE RECORDS SUMMARY | 2018-09-10 09:43 | XMS REPORT ---
Author Author [facility] Address Unknown Phone Unavailable Care Team Providers Care Processing Lead Name Role Phone Unavailable Unavailable Problems This patient has no known problems. Allergies, Adverse Reactions, Alerts This patient has no known allergies or adverse reactions. Medications This patient has no known medications. Results Test Description Test Time Test Comments Text Results Atomic Results Result Comments BREAST ULTRASOUND BILATERAL 2018-08-22 10:51:23 - DIAG MAMM BILATERAL SEBLE CAD DIGITALBILATERAL DIGITAL DIAGNOSTIC MAMMOGRAM 3D/2D WITH CAD: 08/21/2018CLINICAL: Dense breasts. Digital breast tomosynthesis was performed in addition to routine CC and MLO views. Current mammographic images were evaluated by either a [employer] M-Vu or a [employer] Mediacker CAD (computer aided detection system). Comparison is made to exams dated 08/17/2017 mammogram, mammogram, and 07/21/2015 mammogram - [facility]. The tissue of both breasts is heterogeneously dense. This may lower the sensitivity of mammography. No suspicious mass, architectural distortion, malignant type calcification, or lymph node abnormality detected. INCOMPLETE ASSESSMENT: ADDITIONAL IMAGING EVALUATION RECOMMENDEDUltrasound pending for additional evaluation. Resume annual screening mammography in one year. - BREAST ULTRASOUND BILATERALULTRASOUND OF BOTH BREASTS AND BOTH AXILLA: 08/21/2018Comparison is made to exams dated 08/17/2017 mammogram, 08/04/2016 mammogram, and 07/21/2015 mammogram - [facility]. Real-time ultrasound of both breasts and both axilla was performed. No abnormalities were seen sonographically in either breast or either axilla. Clinical breast exam was unremarkable.IMPRESSION: NEGATIVE There is no sonographic evidence of malignancy. Patient has been informed that she has areas of dense breast tissue that could make it difficult to find a small cancer. A screening mammogram and supplemental ultrasound for dense breast tissue is recommended in 1 year.Selin Rodarte M.D. dm/:08/22/2018 10:51:23 copy to: Isaak James MD, ph: [phone], fax: [phone] Technologist: Amanda MAYES, [facility] sent: BIRADS 1-2 Combo FU Letter Mammogram BI- RADS: 0 Indeterminate Ultrasound BI-RADS: 1 Negative DIAG MAMM BILATERAL SEBLE CAD DIGITAL 2018-08-22 10:51:23 - DIAG MAMM BILATERAL SEBLE CAD DIGITALBILATERAL DIGITAL DIAGNOSTIC MAMMOGRAM 3D/2D WITH CAD: 08/21/2018CLINICAL: Dense breasts. Digital breast tomosynthesis was performed in addition to routine CC and MLO views. Current mammographic images were evaluated by either a [employer] M-Vu or a [employer] Image[employer] CAD (computer aided detection system). Comparison is made to exams dated 08/17/2017 mammogram, mammogram, and 07/21/2015 [facility]. The tissue of both breasts is heterogeneously dense. This may lower the sensitivity of mammography. No suspicious mass, architectural distortion, malignant type calcification, or lymph node abnormality detected. INCOMPLETE ASSESSMENT: ADDITIONAL IMAGING EVALUATION RECOMMENDEDUltrasound pending for additional evaluation. Resume annual screening mammography in one year. - BREAST ULTRASOUND BILATERALULTRASOUND OF BOTH BREASTS AND BOTH AXILLA: 08/21/2018Comparison is made to exams dated 08/17/2017 mammogram, 08/04/2016 mammogram, and [facility]. Real-time ultrasound of both breasts and both axilla was performed. No abnormalities were seen sonographically in either breast or either axilla. Clinical breast exam was unremarkable.IMPRESSION: NEGATIVE There is no sonographic evidence of malignancy. Patient has been informed that she has areas of dense breast tissue that could make it difficult to find a small cancer. A screening mammogram and supplemental ultrasound for dense breast tissue is recommended in 1 year.Selin Rodarte M.D. dm/:08/22/2018 10:51:23 copy to: Isaak James MD, ph: [phone], fax: [phone] Technologist: Amanda MAYES, [facility]letter sent: BIRADS 1-2 Combo FU Letter Mammogram BI- RADS: 0 Indeterminate Ultrasound BI-RADS: 1 Negative
--- NOTE | 2018-09-10 10:10 | NUR ---
RECEIVED PT AMBULATORY WITH WALKER INTO ER #2. REPORT RECEIVED FROM TRIAGE NURSE LAURYN. PT ASKED TO GO TO RESTROOM BEFORE GETTING UNDRESSED AND PLACED ON THE MONITOR. URINE WAS COLLECTED.
--- NOTE | 2018-09-10 10:20 | NUR ---
RADIOLOGY ARRIVED JUST BEFORE I HOOKED THE PT UP ON THE MONITORS. NEWS DEPARTMENT INTERN TRANSPORTED PT VIA WHEELCHAIR FOR CT
[2018-09-10 10:41] LABS: BILIRUBIN,URINE NEGATIVE (NEGATIVE); CLARITY,URINE CLEAR (CLEAR); COLOR,URINE YELLOW (YELLOW); KETONES,URINE NEGATIVE (NEGATIVE); LEUKOCYTE ESTERASE ,URINE NEGATIVE (NEGATIVE); NITRITE,URINE NEGATIVE (NEGATIVE); PROTEIN,URINE DIPSTICK NEGATIVE (NEGATIVE); URINE UROBILINOGEN 0.2 mg/dL (0.2 - 1)
[2018-09-10 10:52] LABS: BACTERIA,URINE FEW /HPF; EPITHELIAL CELLS,URINE FEW /LPF; RBC,URINE 0-5 /HPF (0-5); TRANSITIONAL EPI CELLS,URINE RARE; WBC,URINE (MAN) 0-5 /HPF (0-5)
--- NOTE | 2018-09-10 10:54 | NUR ---
PATIENT IS STILL NOT BACK FROM RADIOLOGY YET. WILL START HER IV AND BLOOD DRAW WHEN SHE GETS BACK
--- NOTE | 2018-09-10 11:40 | Diagnostic Imaging Report ---
History:Fainted in shower Comparison studies:CT head 09/12/2015 Technique: Axial images were obtained from the skull base to the vertex. Coronal and sagittal images reconstructed from the axial data. Intravenous contrast: None Dose modulation, iterative reconstruction, and/or weight based adjustment of the mA/kV was utilized to reduce the radiation dose to as low as reasonably achievable. Findings: Scalp/skull: No abnormalities. Extra-axial spaces: No masses. No fluid collections. Brain sulci: Mildly prominent. Ventricles: Mild compensatory dilatation with mild ex vacuo dilation in the left lateral ventricle. No hydrocephalus. Parenchyma: Scattered and confluent hypodensities in the supratentorial white matter are small vessel ischemic changes. Cortical-based hypodensity with volume loss at the anterior left temporal pole and superior frontal gyrus. No masses, hemorrhage or acute cortical vascular insults. Sellar/suprasellar region: No abnormalities. Craniocervical junction: Patent foramen magnum. No Chiari one malformation. Incidental findings: Atherosclerotic calcifications in the carotid siphons . Impression: No acute abnormalities. Chronic findings: 1. Mild generalized volume loss. 2. Moderate supratentorial white matter small vessel ischemic changes. 3. Remote insult at the left superior frontal gyrus and frontal pole. Signed by: DR Natalio Bhardwaj M.D. on 09/10/2018 11:37 AM
[2018-09-10 11:46] LABS: BASOPHILS % 0.5 % (0.0-1.0); EOSINOPHILS # (AUTO) 0.2 (0.0-0.4); EOSINOPHILS % 2.5 % (0.0-6.0); HEMATOCRIT 37.8 % (34.2-44.1); HEMOGLOBIN 12.4 g/dL (12.0-16.0); LYMPHOCYTES # (AUTO) 1.1 (1.0-3.2); LYMPHOCYTES % 18.2 % (18.0-39.1); MEAN CORPUSCULAR HEMOGLOBIN 30.9 pg (28-32); MEAN CORPUSCULAR HGB CONC 32.8 g/dL (31-35); MEAN CORPUSCULAR VOLUME 94.3 fL (81-99); MONOCYTES # (AUTO) 0.4 (0.2-0.8); MONOCYTES % 6.4 % (4.4-11.3); NEUTROPHILS # (AUTO) 4.3 (2.1-6.9); NEUTROPHILS % 71.9 % (38.7-80.0); PLATELET COUNT 279 x10e3/uL (140-360); RED BLOOD COUNT 4.01 x10e6/uL (3.6-5.1); RED CELL DISTRIBUTION WIDTH 14.5 % (11.7-14.4)
--- NOTE | 2018-09-10 11:50 | Diagnostic Imaging Report ---
History: Fainted in shower Comparison studies: CT cervical spine 09/12/2015 Technique: Axial images were obtained through the cervical region.. Coronal and sagittal images reconstructed from the axial data.. Intravenous contrast: None Findings: Fractures: None. Soft tissue injuries: None. Atlantoaxial articulation: Degenerative changes without acute abnormality. Alignment: Normal lordosis. No scoliosis. Cervicomedullary junction: No abnormalities. The foramen magnum is patent. Soft tissues: No abnormalities. Vertebrae: Stable remodeling of right vertebral foramen at level C4, likely related to vessel tortuosity. No fractures, infection or neoplasm. Degenerative changes: Stable degenerative changes arthrosis. IMPRESSION: 1. No acute cervical spine abnormalities. Stable examination. 2. Ligament, spinal cord and or vascular abnormalities cannot be excluded on the basis of this examination. Signed by: DR Natalio Bhardwaj M.D. on 09/10/2018 11:46 AM
[2018-09-10 12:08] LABS: ALANINE AMINOTRANSFERASE 25 IU/L (0-55); ALBUMIN 4.1 g/dL (3.5-5.0); ALBUMIN/GLOBULIN RATIO 1.3 (0.8-2.0); ALKALINE PHOSPHATASE 74 IU/L (40-150); BLOOD UREA NITROGEN 18 mg/dL (7-26); BUN/CREATININE RATIO 21 (6-25); CALCIUM 9.7 mg/dL (8.4-10.2); CARBON DIOXIDE 25 mmol/L (22-29); CHLORIDE 98 mmol/L (98-107); CREATINE KINASE 682 IU/L (29-168); CREATININE, SERUM 0.86 mg/dL (0.57-1.11); EST GLOMERULAR FILTRATION RATE > 60 ML/MIN (60-); GLUCOSE 95 mg/dL (74-118); INR 0.89; PROTHROMBIN TIME 12.5 seconds (11.9-14.5); SODIUM 132 mmol/L (136-145)
[2018-09-10 12:09] LABS: PARTIAL THROMBOPLASTIN TIME 24.4 seconds (23.8-35.5)
--- NOTE | 2018-09-10 12:17 | Diagnostic Imaging Report ---
EXAMINATION: CHEST SINGLE (NOT PORTABLE) INDICATION: Syncope. COMPARISON: None FINDINGS: TUBES and LINES: None. LUNGS: Lungs are moderately inflated. Linear subsegmental atelectasis in the left midlung. There is no evidence of pneumonia or pulmonary edema. PLEURA: No pleural effusion or pneumothorax. HEART AND MEDIASTINUM: The cardiomediastinal silhouette is unremarkable. There are atherosclerotic calcifications within the aorta. BONES AND SOFT TISSUES: No acute osseous abnormality. UPPER ABDOMEN: No free air under the diaphragm. IMPRESSION: No acute radiographic abnormality. Signed by: Dr. Tyrese Emerson MD on 09/10/2018 12:13 PM
--- NOTE | 2018-09-10 12:31 | Diagnostic Imaging Report ---
Exam: Left hip radiographs-2 views; right hip radiographs-2 views; AP radiographs of the pelvis-2 views History: Status post fall with pain. Comparison: None. Findings: No evidence of acute fracture or malalignment. There are mild bilateral hip degenerative changes with joint space narrowing. Bowel gas partially obscures evaluation of the sacrum. Impression: No acute radiographic abnormality in the pelvis or bilateral hips. Mild bilateral hip osteoarthritis. Signed by: Dr. Tyrese Emerson MD on 09/10/2018 12:28 PM
[2018-09-10] MEDS ORDERED: SODIUM CHLORIDE 0.9% 1000ML 1,000 ML IV STA (12:47)
[2018-09-10] MEDS: SODIUM CHLORIDE 0.9% 1000ML 1,000 ML IV SCH ×2 (13:57→20:52)
[2018-09-10] MEDS ORDERED: MORPHINE SULFATE 2 MG/ML SYR 1ML IV PRN (14:00)
[2018-09-10] MEDS ORDERED: ASPIRIN 81 MG CHEW TAB PO ONE (14:00)
[2018-09-10] MEDS ORDERED: ONDANSETRON HCL INJ 2MG/ML 2ML 2 MG/ML VIAL IV PRN (14:00)
[2018-09-10] MEDS ORDERED: MORPHINE SULFATE INJ 4 MG/ML INJ 1ML IV PRN ×2 (14:15)
--- OUTSIDE RECORDS SUMMARY | 2018-09-10 14:45 | XMS REPORT | Clinical Summary ---
Author Author [facility] Address Unknown Phone Unavailable Care Team Providers Care Traffic Police Officer Name Role Phone Jose Robin MD PCP [...] HUMANA MEDICARE HUMANA xxxxxxxxx PPO MEDICARE PPO/PFFS/E [facility] Advance Directives Patient has advance care planning documents on file. For more information, saumya garcia contact: Bravo [facility]ahona [address] [place] [address]
--- NOTE | 2018-09-10 15:20 | NUR ---
report received from [place] in ER, patient to arrive on unit alert and oriented with telemetry via wheelchair.
[2018-09-10 16:00] VITALS: BP 151/74
[2018-09-10 16:11] VITALS: BP 151/74
[2018-09-10 16:17] VITALS: BP 151/74
--- NOTE | 2018-09-10 18:50 | NUR ---
HANDOFF REPORT GIVEN TO CHECKER AND PACKER NURSE, PATIENT AWARE OF CHANGE. CALL CHATMAN WITHIN REACH AND BED IN LOWEST POSITION.
[2018-09-10 20:00] VITALS: BP 172/70
[2018-09-10] MEDS ORDERED: MONTELUKAST SODIUM 10 MG TAB PO SCH (21:00)
[2018-09-10] MEDS ORDERED: TRAVOPROST(OPTH) 2.5 ML BTL OP SCH (21:00)
[2018-09-10 21:01] LABS: CREATINE KINASE MB 14.6 ng/mL (0-5.0)
--- NOTE | 2018-09-10 22:00 | NUR ---
The patient reports that she is going to take the following medications that she brought from home because she needs them and she has not taken them: Labetalol 200mg Hydralizine 25mg Plaquenil 200 mg I went over our Emar with her and the medications that she has received and are schedule for tomorrow in the morning. Her and her stated that her medications have changed since she had a stroke on 2016. Her said that Dr. Pozo from [facility] told the patient that she should not take any blood thinners and she is no longer taking plavix or baby aspirin.. Also she does not take metoprolol for BP, she is in a new blood pressure regimen. I will add the medications she is taking at home for the doctor to review in the morning.
[2018-09-10] MEDS ORDERED: LABETALOL HCL200 MG PO (23:52)
[2018-09-10] MEDS ORDERED: HYDRALAZINE HCL25 MG PO (23:58)
[2018-09-10] MEDS ORDERED: AVALIDE 300-121 EACH PO (23:58)
[2018-09-10] MEDS ORDERED: KEPPRA500 MG PO (23:58)
[2018-09-11] VITALS: BP 159/70
[2018-09-11 04:00] VITALS: BP 150/68
[2018-09-11 05:26] LABS: BASOPHILS % 0.8 % (0.0-1.0); EOSINOPHILS # (AUTO) 0.2 (0.0-0.4); EOSINOPHILS % 4.6 % (0.0-6.0); HEMATOCRIT 32.3 % (34.2-44.1); HEMOGLOBIN 10.7 g/dL (12.0-16.0); LYMPHOCYTES # (AUTO) 1.6 (1.0-3.2); LYMPHOCYTES % 30.3 % (18.0-39.1); MEAN CORPUSCULAR HEMOGLOBIN 30.9 pg (28-32); MEAN CORPUSCULAR HGB CONC 33.1 g/dL (31-35); MEAN CORPUSCULAR VOLUME 93.4 fL (81-99); MONOCYTES # (AUTO) 0.4 (0.2-0.8); MONOCYTES % 7.9 % (4.4-11.3); NEUTROPHILS # (AUTO) 2.9 (2.1-6.9); PLATELET COUNT 228 x10e3/uL (140-360); RED BLOOD COUNT 3.46 x10e6/uL (3.6-5.1); RED CELL DISTRIBUTION WIDTH 14.6 % (11.7-14.4)
[2018-09-11] MEDS: SODIUM CHLORIDE 0.9% 1000ML 1,000 ML IV SCH ×2 (05:32→13:30)
[2018-09-11 05:54] LABS: CREATINE KINASE MB 8.5 ng/mL (0-5.0)
--- NOTE | 2018-09-11 06:00 | Diagnostic Imaging Report ---
Examination: Single AP view of the chest. COMPARISON: None. INDICATION: Syncope DISCUSSION: Lines/tubes: None. Lungs: The lungs are well inflated and clear. No pneumonia or pulmonary edema. Pleura: No pleural effusion or pneumothorax. Heart and mediastinum: The heart and the mediastinum are unremarkable. Bones and soft tissues: No acute bony abnormalities. IMPRESSION: 1. No acute cardiopulmonary abnormalities. Signed by: Dr. Darrick Sommers M.D. on 09/11/2018 5:57 AM
[2018-09-11 06:13] LABS: ALANINE AMINOTRANSFERASE 22 IU/L (0-55); ALBUMIN 3.5 g/dL (3.5-5.0); ALBUMIN/GLOBULIN RATIO 1.3 (0.8-2.0); ALKALINE PHOSPHATASE 60 IU/L (40-150); ANION GAP 9.4 mmol/L (8-16); BLOOD UREA NITROGEN 12 mg/dL (7-26); BUN/CREATININE RATIO 17 (6-25); CALCIUM 8.7 mg/dL (8.4-10.2); CARBON DIOXIDE 23 mmol/L (22-29); CHLORIDE 103 mmol/L (98-107); CREATININE, SERUM 0.71 mg/dL (0.57-1.11); EST GLOMERULAR FILTRATION RATE > 60 ML/MIN (60-); GLUCOSE 92 mg/dL (74-118); POTASSIUM 3.4 mmol/L (3.5-5.1); SODIUM 132 mmol/L (136-145)
--- NOTE | 2018-09-11 06:30 | NUR ---
The patient was assisted to the bathroom and is now laying in bed, respirations are even and unlabored. The patient appears comfortable, and denies pain at this time. at bed side. Bed in low position, side rails up, wheels locked and call light within reach. Addendum: 09/11/18 at 0636 by Paula Cain RN The patient was assisted to the bathroom and is now laying in bed, respirations are even and unlabored. The patient appears comfortable, and denies pain at this time. IV Patent and infusing NS. at bed side. Bed in low position, side rails up, wheels locked and call light within reach.
--- NOTE | 2018-09-11 06:45 | NUR ---
handoff report received. patient alert and oriented, aware of change. call delatorre within reach and bed in lowest position.
[2018-09-11 07:37] VITALS: BP 149/65
[2018-09-11 07:50] VITALS: BP 149/65
--- NOTE | 2018-09-11 07:50 | NUR ---
patient states meds in the computer are incorrect, upon discussing the proper medications, patient and declined for the hospital to provide medications for patient.
[2018-09-11] MEDS: HYDROXYCHLOROQUINE SULFATE 200 MG TAB PO SCH ×2 (08:12→17:00)
[2018-09-11] MEDS ORDERED: METOPROLOL SUCCINATE 50 MG TAB XL PO SCH (09:00)
[2018-09-11] MEDS ORDERED: CLOPIDOGREL BISULFATE 75 MG TAB PO SCH (09:00)
[2018-09-11] MEDS ORDERED: METHOTREXATE SOD 2.5 MG TAB PO SCH (09:00)
[2018-09-11] MEDS ORDERED: AMLODIPINE BESYLATE 10 MG TAB PO SCH (09:00)
--- NOTE | 2018-09-11 10:36 | NUR ---
SOCIAL WORK INITIAL ASSESSMENT Warehouse General Laborer to bedside to discuss plan of care with patient/family. CM/SW role and care transitions discussed. Anticipated discharge plan discussed along with duration of care. CM/SW discussed patients right to make decisions in care. CM/SW work hours given. Patient lives: IN HOUSE WITH FAMILY Admit/Transfer: VIA ED FROM HOME POA/Emergency contact: STACEY [phone] Current/Previous Home Health: NONE PCP/Follow-up Care: [facility] NOW [facility] BUT HASNT SEEN YET Current/Previous DME: NONE Other Services: NONE Employment Status: RETIRED Areas of Concerns: NONE Referral Needs: NONE Education Needs: NONE IMM/VANEGAS given and signed (if applicable): ON CHART Goal for discharge:RETURN HOME NO NEEDS CM/SW left business card at the bedside with contact information. Name and number was also written on the patients whiteboard. Patient verbalized understanding of discussion. CM will follow-up with ongoing discharge and transition of care needs.
[2018-09-11 11:48] VITALS: BP 157/70
--- NOTE | 2018-09-11 13:30 | NUR ---
Visit made by the Spiritual Care Department Pastoral Visitor, Fozia Kebede. PV provided pastoral presence, prayer, hospitality, and supportive listening. Pastoral Visitor informed pt/family of the scope of Child Care Attendant Services and availability. JARAD QUEZADA [employer] Filler Spiritual Care Department O: [phone] Pager: [phone] ([phone] number calling from)
[2018-09-11 16:30] VITALS: BP 181/81
--- NOTE | 2018-09-11 16:52 | NUR ---
TELEMETRY CALLED AND STATED THE PATIENT HAD LEADS OFF, CHECKED ON THE PATIENT AND SHE HAD REMOVED THE TELEMETRY BOX FROM HERSELF AND STATED IT HAD BEEN 24 HOURS SINCE IT WAS PLACED ON HER AND IT WILL REMAIN OFF. EDUCATED THE PATIENT ON THE IMPORTANCE OF THE TELEMETRY BOX AND WILL NOTIFY PHYSICIAN.
[2018-09-11] MEDS ORDERED: POTASSIUM CHLORIDE 10MEQ EA PO NR (18:00)
--- NOTE | 2018-09-11 18:35 | NUR ---
PATIENT ALERT AND ORIENTED. DISCHARGE INSTRUCTIONS GIVEN TO PATIENT AND , BOTH VERBALIZED UNDERSTANDING. IV DISCONTINUED AT THIS TIME, CATHETER IN TACT AND SMALL DRESSING APPLIED. PATIENT TO BE WHEELED OUT TO PERSONAL AUTO FOR TO DRIVE HOME.
== END 2018-09-11 18:50 | disposition home or self-care (01) ==
LOC: ER 09:40 → ERHOLD 14:42 → IMCU 15:55
DX: R55 Syncope and collapse (principal); R00.1 Bradycardia, unspecified; Z88.2 Allergy status to sulfonamides; I10 Essential (primary) hypertension; Z86.73 Personal history of transient ischemic attack (TIA), and cerebral infarction without residual deficits; M19.90 Unspecified osteoarthritis, unspecified site; Z82.49 Family history of ischemic heart disease and other diseases of the circulatory system; M06.9 Rheumatoid arthritis, unspecified
CPT/HCPCS: 36415 ×2; 70450; 71045 ×2; 72125; 73521; 80053 ×2; 81001; 82542; 82550 ×2; 82553 ×2; 84484 ×2; 85025 ×2; 85610; 85730; 87086; 93005 ×2; 93306; 99285; G0378 ×2; J7030 ×2